=== PATIENT | female | born 1950 | race Caucasian/White ===

== ENCOUNTER 2018-09-24 14:12 | Outpatient (CLI) | payer MEDICARE, SELFPAY ==
--- NOTE | 2018-09-24 14:09 | DI.RAD_ITS ---
SYMPTOMS/DIAGNOSIS: LEFT SHOULDER PAIN; BILATERAL HIP PAIN LEFT SHOULDER: Mild to moderate degenerative changes involving the glenohumeral joint are demonstrated. There is also moderate DJD involving the AC joint. No soft tissue calcifications are evident. BILATERAL HIPS: Severe bilateral DJD is demonstrated with joint space narrowing, articular sclerosis, subchondral cyst formation and periarticular hypertrophic spurring. SUMMARY: Severe bilateral hip DJD is evident.
== END 2018-09-24 14:32 ==
PROVIDERS: PCP Family Medicine; Referring Provider Family Medicine; Visit Provider Student in an Organized Health Care Education/Training Program
DX: M25.512 Pain in left shoulder (principal); M25.551 Pain in right hip; M25.552 Pain in left hip; M16.0 Bilateral primary osteoarthritis of hip; I69.398 Other sequelae of cerebral infarction; R53.1 Weakness
CPT/HCPCS: 20610; 73521; 99202; 99204; 73030; J1040

== ENCOUNTER 2018-10-09 01:02 | Outpatient (CLI) | payer MEDICARE, SELFPAY ==
--- NOTE | 2018-10-09 07:14 | DI.RAD_ITS ---
SYMPTOMS/DIAGNOSIS: PRIMARY OSTEOARTHRITIS, RIGHT HIP, M16.11; PRIMARY OSTEOARTHRITIS, LEFT HIP, M16.12 BILATERAL HIP JOINT INJECTIONS: Fluoroscopy Time: 2 sec Fluoroscopy was utilized by Dr. Tello during left hip injection. Hard copy shows intraarticular injection of the hip. Fluoroscopy was utilized by Dr. Tello during right hip injection. Hard copy shows intraarticular injection of the hip.
[2018-10-09] MEDS: methylPREDNISolone ACETATE 80 MG/ML VIAL IM ×2 (13:45→13:49)
[2018-10-09] MEDS: Bupivacaine 0.5% Pres-Free 10 ML VIAL 5 ML IJ ×2 (13:47→13:50)
[2018-10-09] MEDS: Omnipaque 300 MG/ML 10 ML BTL IJ ×2 (13:48→13:50)
--- NOTE | 2018-10-09 15:38 | W.PROCNOTE ---
Date of service: 10/09/18 Time of Service: 12:38 Procedure Note Date of procedure: 10/09/18 Procedure: Bilateral hip Injection with Fluoroscopic Guidance Surgeon/Proceduralist/Physician: Avelino Tello Procedure Diagnosis: Bilateral hip Osteoarthritis Procedure Indications: Bonny has had persistent pain of the left and right hip and groin. Noninvasive measures have been tried. She has had previous intra-articular injections with good therapeutic benefit. An injection under fluoroscopy was recommended. I had discussed the risks of the procedure and the patient elected to proceed. Procedure Description: Bonny was greeted in the flouroscopy room. The correct side was identified and the consent was reviewed with the patient and signed. The patient was then placed in the supine position on the fluoroscopy table. The LEFT hip was then prepped with Chloraprep. The anterolateral injection starting point was identiifed by bony landmarks and fluoroscopy. The skin and soft tissue in the tract of the injection was anesthetized with 1% Lidocaine. A spinal needle was then inserted deep into the hip joint at the level of the lateral femoral neck under fluoroscopic guidance. A small amount of Omnipaque solution was injected to confirm intraarticular placement. Once confirmed, the hip was injected with 6cc of 0.5% Bupivicaine and 80mg of Depo-Medrol. A bandaid was placed on the injection site. The sterile table was moved away from the field and Bonny was repositioned for a right hip injection. The right hip was then prepped with Chloraprep. The anterolateral injection starting point was identiifed by bony landmarks and fluoroscopy. The skin and soft tissue in the tract of the injection was anesthetized with 1% Lidocaine. A spinal needle was then inserted deep into the hip joint at the level of the lateral femoral neck under fluoroscopic guidance. A small amount of Omnipaque solution was injected to confirm intraarticular placement. Once confirmed, the hip was injected with 6cc of 0.5% Bupivicaine and 80mg of Depo-Medrol. A bandaid was placed on the injection site. The patient tolerated the procedure well.
== END 2018-10-09 01:22 ==
PROVIDERS: PCP Family Medicine; Visit Provider Student in an Organized Health Care Education/Training Program
DX: M25.551 Pain in right hip (principal); M25.552 Pain in left hip; M16.0 Bilateral primary osteoarthritis of hip
CPT/HCPCS: 20610; 77002; J1040

== ENCOUNTER 2018-11-20 09:27 | Outpatient (REF) | payer MEDICARE, SELFPAY ==
[2018-11-20 21:35] LABS: ALT 32 U/L (12-78); AST 30 U/L (15-37); Albumin 3.7 g/dL (3.4-5.0); Alkaline Phosphatase 136 U/L (46-116); Anion Gap 12.2 mmol/L (3-11); BUN 12 mg/dL (7-18); Bilirubin, Total 0.5 mg/dL (0.2-1.0); CO2 25.8 mmol/L (21.0-32.0); CREATININE 0.82 mg/dL (0.55-1.02); Calcium 8.7 mg/dL (8.5-10.1); Calculated LDL 89; Chloride 107 mmol/L (98-107); Cholesterol 149 mg/dL (50-200); Glucose 94 mg/dL (70-100); HCT 45.4 % (36.0-46.0); HDL Cholesterol 45 mg/dL (40-60); HGB 14.8 g/dL (12.0-15.5); Mean Corp. HGB Concentration 32.6 g/dL (32.0-36.0); Mean Corpuscular Volume 98.1 fL (80-95); Mean Platelet Volume 12.4 fL (8.0-11.0); Platelet Count 205 x1000/uL (130-400); RBC 4.63 m/cumm (4.00-5.20); RBC Distribution Width 13.4 % (11.7-14.6); Sodium 145 mmol/L (136-145); TSH (W/Ref FT4) 3.07 uIU/mL (0.358-3.74); Total Protein 6.5 g/dL (6.4-8.2); Triglyceride 77 mg/dL (30-150); White Blood Cell Count 5.49 k/cumm (4.4-10.8)
== END 2018-11-20 09:47 ==
LOC: NCHCN 09:27
PROVIDERS: PCP Family Medicine; Visit Provider Family Medicine
DX: F32.9 Major depressive disorder, single episode, unspecified (principal); D68.9 Coagulation defect, unspecified; I63.9 Cerebral infarction, unspecified; R74.8 Abnormal levels of other serum enzymes
CPT/HCPCS: 80053; 80061; 83721; 85027; 84443

== ENCOUNTER 2019-02-12 00:59 | Outpatient (CLI) | payer MEDICARE, SELFPAY ==
--- NOTE | 2019-02-12 07:46 | DI.RAD_ITS ---
SYMPTOMS/DIAGNOSIS: PRIMARY OSTEOARTHRITIS OF RIGHT HIP, M16.11; PRIMARY OSTEOARTHRITIS OF LEFT HIP, M16.12 BILATERAL HIP INJECTIONS: Fluoroscopy Time: 13 seconds Fluoroscopy was utilized by Dr. Tello during left hip injection. Hard copy shows intraarticular left hip injection. Fluoroscopy was utilized by Dr. Tello during right hip injection. Hard copy shows intraarticular injection of the right hip.
[2019-02-12] MEDS: Omnipaque 300 MG/ML 10 ML BTL IJ ×2 (15:28→15:42)
[2019-02-12] MEDS: Bupivacaine 0.5% Pres-Free 10 ML VIAL 50 ML IJ ×2 (15:29→15:36)
[2019-02-12] MEDS: Lidocaine 1% Pres-Free 5 ML VIAL IJ ×2 (15:30→15:39)
[2019-02-12] MEDS: methylPREDNISolone ACETATE 80 MG/ML VIAL IM ×2 (15:31→15:45)
--- NOTE | 2019-02-12 16:05 | OPPNE_ITS ---
Date of service: 02/12/19 Time of Service: 14:42 Procedure Note Date of procedure: 02/12/19 Procedure: Bilateral Hip Injection Surgeon/Proceduralist/Physician: Avelino Tello Procedure Diagnosis: Bilateral Hip Arthritis Procedure Indications: Bonny has had persistent pain of the left and right hip and groin. Noninvasive measures have been tried. She has had previous intra-articular injections with good therapeutic benefit. An injection under fluoroscopy was recommended. I had discussed the risks of the procedure and the patient elected to proceed. Procedure Description: Bonny was greeted in the flouroscopy room. The correct side was identified and the consent was reviewed with the patient and signed. The patient was then placed in the supine position on the fluoroscopy table. The RIGH AND LEFT hip was then prepped with Chloraprep. The anterolateral injection starting point of the RIGHT was identiifed by bony landmarks and fluoroscopy. The skin and soft tissue in the tract of the injection was anesthetized with 1% Lidocaine. A spinal needle was then inserted deep into the hip joint at the level of the lat eral femoral neck under fluoroscopic guidance. A small amount of Omnipaque solution was injected to confirm intraarticular placement. Once confirmed, the hip was injected with 5cc of 0.5% Bupivicaine and 80mg of Depo-Medrol. A bandaid was placed on the injection site. While keeping the injectables sterile, the anterolateral injection starting point was identiifed by bony landmarks and fluoroscopy of the LEFT hip. The skin and soft tissue in the tract of the injection was anesthetized with 1% Lidocaine. A spinal needle was then inserted deep into the hip joint at the level of the lateral femoral neck under fluoroscopic guidance. A small amount of Omnipaque solution was injected to confirm intraarticular placement. Once confirmed, the hip was injected with 5cc of 0.5% Bupivicaine and 80mg of Depo- Medrol. A bandaid was placed on the injection site. The patient tolerated the procedure well.
== END 2019-02-12 01:19 ==
PROVIDERS: PCP Family Medicine; Visit Provider Student in an Organized Health Care Education/Training Program
DX: M16.12 Unilateral primary osteoarthritis, left hip (principal); M16.11 Unilateral primary osteoarthritis, right hip; M25.551 Pain in right hip; M25.552 Pain in left hip
CPT/HCPCS: 20610; 77002; J1040

== ENCOUNTER → 2019-06-26 09:51 | Outpatient (BNVA) | payer MEDICARE, SELFPAY | PROVIDERS: PCP Family Medicine; Referring Provider Family Medicine; Visit Provider Student in an Organized Health Care Education/Training Program | DX: M75.82 Other shoulder lesions, left shoulder (principal); M77.12 Lateral epicondylitis, left elbow; R20.2 Paresthesia of skin | CPT/HCPCS: 20610; 99213; J1040; L3908 ==

== ENCOUNTER 2019-07-02 01:30 | Outpatient (CLI) | payer MEDICARE, SELFPAY ==
--- NOTE | 2019-07-02 | DI.RAD_ITS ---
EXAM: RF JOINT INJECTION FLUORO GUID CLINICAL HISTORY: R HIP PAIN,m16.11, primary oa rt hip TECHNIQUE: COMPARISON: No exams were available for comparison FINDINGS: Fluoroscopy was utilized by Dr. Tello during left hip injection. Hard copy shows intra-articular left hip injection. IMPRESSION:
--- NOTE | 2019-07-02 | DI.RAD_ITS ---
EXAM: RF JOINT INJECTION FLUORO GUID CLINICAL HISTORY: R HIP PAIN,m16.11, primary oa rt hip TECHNIQUE: COMPARISON: No exams were available for comparison FINDINGS: Fluoroscopy was utilized by Dr. Tello during right hip injection. Hard copy shows intra-articular right hip injection. IMPRESSION:
[2019-07-02] MEDS: Bupivacaine 0.5% Pres-Free 10 ML VIAL IJ (14:27)
[2019-07-02] MEDS: methylPREDNISolone ACETATE 80 MG/ML VIAL 160 MG IM (14:27)
[2019-07-02] MEDS: Omnipaque 300 MG/ML 10 ML BTL IJ (14:28)
--- NOTE | 2019-07-02 14:33 | W.PROCNOTE ---
Date of service: 07/02/19 Time of Service: 14:34 Procedure Note Date of procedure: 07/02/19 Procedure: Bilateral hip Injection with Fluoroscopic Guidance Surgeon/Proceduralist/Physician: Avelino Tello Procedure Diagnosis: Bilateral hip Osteoarthritis Procedure Indications: Bonny has had persistent pain of the right and left hip and groin. Noninvasive measures have been tried. She has had previous injections with good results. Therefore, an injection under fluoroscopy was recommended. I had discussed the risks of the procedure and the patient elected to proceed. Procedure Description: Bonny was greeted in the flouroscopy room. The consent was reviewed with the patient and signed. The patient was then placed in the supine position on the fluoroscopy table. The RIGHT hip was then prepped with Chloraprep. The anterolateral injection starting point was identiifed by bony landmarks and fluoroscopy. The skin and soft tissue in the tract of the injection was anesthetized with 1% Lidocaine. A spinal needle was then inserted deep into the hip joint at the level of the lateral femoral neck under fluoroscopic guidance. A small amount of Omnipaque solution was injected to confirm intraarticular placement. Once confirmed, the hip was injected with 5cc of 0.5% Bupivicaine and 80mg of Depo-Medrol. A bandaid was placed on the injection site. The left side was then prepped with ChloraPrep. An anterior lateral injection starting point was identified the bony landmarks and fluoroscopy. The skin and soft tissues in the tract of the injection was then anesthetized with 1% lidocaine. She tolerated this well and a spinal needle was inserted deep into the hip joint at the level of the lateral femoral neck under fluoroscopic guidance. A small amount of Omnipaque solution was injected to confirm intra-articular placement. Once confirmed, the hip was then injected with 5 cc of 0.5% bupivacaine and 80 mg of Depo-Medrol. A Band-Aid was placed on the injection site. The patient tolerated the procedure well and noted improvement in pre-injection pain.
== END 2019-07-02 01:50 ==
PROVIDERS: PCP Family Medicine; Visit Provider Student in an Organized Health Care Education/Training Program
DX: M25.551 Pain in right hip (principal); M25.552 Pain in left hip; M16.0 Bilateral primary osteoarthritis of hip
CPT/HCPCS: 20610 ×2; 77002; J1040

== ENCOUNTER → 2019-07-14 13:48 | Outpatient (BNVA) | payer MEDICARE, SELFPAY | PROVIDERS: PCP Family Medicine; Referring Provider Student in an Organized Health Care Education/Training Program; Visit Provider Nurse Practitioner Adult Health | DX: G56.22 Lesion of ulnar nerve, left upper limb (principal) | CPT/HCPCS: 95908; 99203; 99214 ==

== ENCOUNTER → 2019-07-30 11:26 | Outpatient (BNVA) | payer MEDICARE, SELFPAY | PROVIDERS: PCP Family Medicine; Referring Provider Family Medicine; Visit Provider Student in an Organized Health Care Education/Training Program | DX: G56.22 Lesion of ulnar nerve, left upper limb (principal) | CPT/HCPCS: 99213 ==

== ENCOUNTER → 2019-10-12 15:14 | Outpatient (BNVA) | payer MEDICARE, SELFPAY | PROVIDERS: PCP Family Medicine; Referring Provider Family Medicine; Visit Provider Student in an Organized Health Care Education/Training Program | DX: M77.12 Lateral epicondylitis, left elbow (principal); G56.22 Lesion of ulnar nerve, left upper limb | CPT/HCPCS: 99212 ==

== ENCOUNTER 2019-10-15 12:29 | Outpatient (CLI) | payer MEDICARE, SELFPAY ==
--- NOTE | 2019-10-15 14:00 | DI.RAD_ITS ---
EXAM: RF JOINT INJECTION FLUORO GUID CLINICAL HISTORY: R HIP INJ UNDER FLUORO, PRIMARY OA RT HIP, M16.11 TECHNIQUE: COMPARISON: No exams were available for comparison FINDINGS: Fluoroscopy was utilized by Dr. Tello during right hip injection. Hard copy shows intra-articular injection. Fluoro time was 6 seconds. IMPRESSION:
--- NOTE | 2019-10-15 14:00 | DI.RAD_ITS ---
EXAM: RF JOINT INJECTION FLUORO GUID CLINICAL HISTORY: R HIP INJ UNDER FLUORO, PRIMARY OA RT HIP, M16.11 TECHNIQUE: COMPARISON: No exams were available for comparison FINDINGS: Fluoroscopy was utilized by Dr. Tello during left hip injection. Hard copy shows intra-articular injection. Fluoro time was 5 seconds. IMPRESSION:
[2019-10-15] MEDS: Omnipaque 300 MG/ML 10 ML BTL IJ (14:52)
[2019-10-15] MEDS: Bupivacaine 0.5% Pres-Free 10 ML VIAL 5 ML IJ (14:52)
[2019-10-15] MEDS: methylPREDNISolone ACETATE 80 MG/ML VIAL IM (14:53)
--- NOTE | 2019-10-15 20:59 | W.PROCNOTE ---
Date of service: 10/15/19 Time of Service: 14:20 Procedure Note Date of procedure: 10/15/19 Procedure: Bilateral Hip Injection with Fluoroscopic Guidance Surgeon/Proceduralist/Physician: Avelino Tello Procedure Diagnosis: Bilateral Hip Osteoarthritis Procedure Indications: Bonny has had persistent pain of the bilateral hip and groin. Noninvasive measures have been tried. She has had previous injections. Due to previous success with injections, repeat injection under fluoroscopy was recommended. I had discussed the risks of the procedure and the patient elected to proceed. Procedure Description: Bonny was greeted in the flouroscopy room. The correct side was identified and the consent was reviewed with the patient and signed. The patient was then placed in the supine position on the fluoroscopy table. The LEFT hip was then prepped with Chloraprep. The anterolateral injection starting point was identiifed by bony landmarks and fluoroscopy. The skin and soft tissue in the tract of the injection was anesthetized with 1% Lidocaine. A spinal needle was then inserted deep into the hip joint at the level of the lateral femoral neck under fluoroscopic guidance. A small amount of Omnipaque solution was injected to confirm intraarticular placement. Once confirmed, the hip was injected with 5cc of 0.5% Bupivicaine and 80mg of Depo-Medrol. A bandaid was placed on the injection site. The RIGHT hip was then prepped with Chloraprep. The anterolateral injection starting point was identiifed by bony landmarks and fluoroscopy. The skin and soft tissue in the tract of the injection was anesthetized with 1% Lidocaine. A spinal needle was then inserted deep into the hip joint at the level of the lateral femoral neck under fluoroscopic guidance. A small amount of Omnipaque solution was injected to confirm intraarticular placement. Once confirmed, the hip was injected with 5cc of 0.5% Bupivicaine and 80mg of Depo-Medrol. A bandaid was placed on the injection site. The patient tolerated the procedure well and noted improvement in pre-injection pain.
== END 2019-10-15 12:49 ==
PROVIDERS: PCP Family Medicine; Visit Provider Student in an Organized Health Care Education/Training Program
DX: M25.551 Pain in right hip (principal); M25.552 Pain in left hip; M16.0 Bilateral primary osteoarthritis of hip
CPT/HCPCS: 20610 ×2; 77002; J1040

== ENCOUNTER 2019-11-23 10:34 | Outpatient (REF) | payer MEDICARE, SELFPAY ==
[2019-11-23 21:26] LABS: ALT 30 U/L (14-59); AST 21 U/L (15-37); Albumin 3.7 g/dL (3.4-5.0); Alkaline Phosphatase 141 U/L (46-116); Anion Gap 9.5 mmol/L (3-11); BUN 14 mg/dL (7-18); Bilirubin, Total 0.7 mg/dL (0.2-1.0); CO2 28.5 mmol/L (21.0-32.0); CREATININE 0.73 mg/dL (0.55-1.02); Calcium 8.9 mg/dL (8.5-10.1); Calculated LDL 85 mg/dL (<100); Chloride 104 mmol/L (98-107); Cholesterol 158 mg/dL (<200); Glucose 94 mg/dL (74-106); HDL Cholesterol 50 mg/dL (40-60); Sodium 142 mmol/L (136-145); Total Protein 6.4 g/dL (6.4-8.2); Triglyceride 116 mg/dL (<150)
[2019-11-23 21:33] LABS: HCT 44.5 % (36.0-46.0); HGB 14.3 g/dL (12.0-15.5); Mean Corp. HGB Concentration 32.1 g/dL (32.0-36.0); Mean Corpuscular Hemoglobin 31.1 pg (27.0-33.0); Mean Corpuscular Volume 96.7 fL (80-95); Mean Platelet Volume 12.3 fL (8.0-11.0); Platelet Count 193 x1000/uL (130-400); RBC Distribution Width 13.4 % (11.7-14.6); White Blood Cell Count 5.34 k/cumm (4.4-10.8)
== END 2019-11-23 10:54 ==
LOC: NCHCN 10:34
PROVIDERS: PCP Family Medicine; Visit Provider Family Medicine
DX: E78.5 Hyperlipidemia, unspecified (principal); D68.9 Coagulation defect, unspecified; I63.9 Cerebral infarction, unspecified
CPT/HCPCS: 80053; 80061; 85027

== ENCOUNTER 2020-01-28 02:24 | Outpatient (CLI) | payer MEDICARE, SELFPAY ==
--- NOTE | 2020-01-28 | DI.DEXA_ITS ---
EXAM: XR DEXA BONE DENSITY W/WO SARI CLINICAL HISTORY: SCREENING FOR OSTEOPOROSIS IN POSTMENOPAUSAL WOMAN,Z78.0 TECHNIQUE: COMPARISON: CR XR hip pelvis adult Bl from 09/24/2018 FINDINGS: DEXA scan was performed according to the usual protocol. Findings for left hip scanning are T-score -1.8 with left femoral neck T-score -0.7. Lumbar spine scanning shows T-score 0.1. Left forearm scanning shows T-score -1.3. Lateral vertebral scanogram is of poor technical quality regarding the thoracic spine, thoracic verte bral bodies cannot be adequately assessed. No lumbar spine compression fracture. IMPRESSION: Findings consistent with osteopenia according to the WHO criteria. Thoracic kyphosis noted, thoracic vertebral bodies not well visualized. Thoracic spine radiographs may be obtained if clinically addi cated. RADIATION DOSE DELIVERED: Total DLP
--- NOTE | 2020-01-28 14:11 | DI.MAMMO_ITS ---
EXAM: MG MAMMO SCREENING CLINICAL HISTORY: SCREENING, Z12.31 TECHNIQUE: Bilateral full field digital CC and MLO mammographic images were obtained with 3D tomosyn thesis and utilizing computer aided detection (CAD). COMPARISON: Priors unavailable at this time for comparison. FINDINGS: Masses/Architectural Distortion: None seen. Microcalcifications: No suspicious pleomorphic-type are seen. Skin Thickening/Nipple Retraction: None. IMPRESSION: 1. No significant interval change with no specific features of malignancy noted. 2. Unless there is more urgent need, screening mammography is recommended, as per [employer] guidelines. BI-RADS Category 1 - Negative Breast Density - Category A - Almost entirely fatty A negative radiographic report should not delay biopsy if a dominant or clinically suspicious mass is present. Up to ten percent of cancers are not identified on mammography. A negative report may reinforce clinical impression. Adenosis and dense breasts may obscure an underlying neoplasm. False positive reports average 6 to 10%. Patient will receive a letter notifying them of these results.
== END 2020-01-28 02:44 ==
PROVIDERS: PCP Family Medicine; Visit Provider Family Medicine
DX: Z12.31 Encounter for screening mammogram for malignant neoplasm of breast (principal); Z78.0 Asymptomatic menopausal state; M85.89 Other specified disorders of bone density and structure, multiple sites
CPT/HCPCS: 77063; 77067; 77080

== ENCOUNTER 2020-05-05 01:12 | Outpatient (CLI) | payer MEDICARE, SELFPAY ==
--- NOTE | 2020-05-05 13:40 | DI.RAD_ITS ---
EXAM: RF JOINT INJECTION FLUORO GUID CLINICAL HISTORY: R HIP INJ UNDER FLUORO,PRIMARY OA RT HIP,M16.11. TECHNIQUE: 2D and realtime digital imaging was performed. COMPARISON: No exams were available for comparison FINDINGS: Fluoroscopy was provided for Dr. Tello for guidance with performing a left hip injection. Please see procedure note for details. Fluoro time: 6 seconds RADIATION DOSE DELIVERED:
--- NOTE | 2020-05-05 13:50 | DI.RAD_ITS ---
EXAM: RF JOINT INJECTION FLUORO GUID CLINICAL HISTORY: LT HIP INJ UNDER FLUORO,PRIMARY OA RT HIP,M16.11. TECHNIQUE: 2D and realtime digital imaging was performed. COMPARISON: No exams were available for comparison FINDINGS: Fluoroscopy was provided for Dr. Tello for guidance with performing a left hip injection. Please see procedure note for details. Fluoro time: 10 seconds RADIATION DOSE DELIVERED:
[2020-05-05] MEDS: Bupivacaine 0.5% Pres-Free 10 ML VIAL 6 ML IV (14:07)
[2020-05-05] MEDS: methylPREDNISolone ACETATE 80 MG/ML VIAL IM (14:08)
[2020-05-05] MEDS: Omnipaque 300 MG/ML 10 ML BTL IJ (14:09)
--- NOTE | 2020-05-06 13:02 | W.PROCNOTE ---
Date of service: 05/05/20 Time of Service: 13:31 Procedure Note Date of procedure: 05/06/20 Procedure: Bilateral Hip Injection with Fluoroscopic Guidance Surgeon/Proceduralist/Physician: Avelino Tello Procedure Diagnosis: Bilateral Hip Osteoarthritis Procedure Indications: Bonny has had persistent pain of the bilateral hip and groin. Noninvasive measures have been tried. She has had previous injections. Due to previous success with injections, repeat injection under fluoroscopy was recommended. I had discussed the risks of the procedure and the patient elected to proceed. Procedure Description: Bonny was greeted in the flouroscopy room. The correct side was identified and the consent was reviewed with the patient and signed. The patient was then placed in the supine position on the fluoroscopy table. The LEFT hip was then prepped with Chloraprep. The anterolateral injection starting point was identiifed by bony landmarks and fluoroscopy. The skin and soft tissue in the tract of the injection was anesthetized with 1% Lidocaine. A spinal needle was then inserted deep into the hip joint at the level of the lateral femoral neck under fluoroscopic guidance. A small amount of Omnipaque solution was injected to confirm intraarticular placement. Once confirmed, the hip was injected with 5cc of 0.5% Bupivicaine and 80mg of Depo-Medrol. A bandaid was placed on the injection site. The RIGHT hip was then prepped with Chloraprep. The anterolateral injection starting point was identiifed by bony landmarks and fluoroscopy. The skin and soft tissue in the tract of the injection was anesthetized with 1% Lidocaine. A spinal needle was then inserted deep into the hip joint at the level of the lateral femoral neck under fluoroscopic guidance. A small amount of Omnipaque solution was injected to confirm intraarticular placement. Once confirmed, the hip was injected with 5cc of 0.5% Bupivicaine and 80mg of Depo-Medrol. A bandaid was placed on the injection site. The patient tolerated the procedure well and noted improvement in pre-injection pain.
== END 2020-05-05 01:32 ==
PROVIDERS: PCP Family Medicine; Visit Provider Student in an Organized Health Care Education/Training Program
DX: M16.12 Unilateral primary osteoarthritis, left hip (principal); M16.11 Unilateral primary osteoarthritis, right hip; M25.551 Pain in right hip; M25.552 Pain in left hip
CPT/HCPCS: 20610; 77002; J1040

== ENCOUNTER → 2020-05-16 09:04 | Outpatient (BNVA) | payer MEDICARE, SELFPAY | PROVIDERS: PCP Family Medicine; Referring Provider Family Medicine; Visit Provider Student in an Organized Health Care Education/Training Program | DX: M75.82 Other shoulder lesions, left shoulder (principal) | CPT/HCPCS: 20610; 99213; J1040 ==

== ENCOUNTER 2020-08-18 01:46 | Outpatient (CLI) | payer MEDICARE, SELFPAY ==
--- NOTE | 2020-08-18 08:15 | DI.RAD_ITS ---
EXAM: RF JOINT INJECTION FLUORO GUID CLINICAL HISTORY: RIGHT HIP PAIN,PRIMARY OA, M16.11 TECHNIQUE: 2D and realtime digital imaging was performed. Fluoroscopy was provided in the OR. COMPARISON: No exams were available for comparison FINDINGS: Fluoroscopy was provided for Dr. Tello for guidance with performing the right hip injection. Carie brambila see procedure note for details. Fluoro time: 2 seconds RADIATION DOSE DELIVERED:
--- NOTE | 2020-08-18 08:15 | DI.RAD_ITS ---
EXAM: RF JOINT INJECTION FLUORO GUID CLINICAL HISTORY: RIGHT HIP PAIN,PRIMARY OA, M16.11 TECHNIQUE: 2D and realtime digital imaging was performed. Fluoroscopy was provided in the OR. COMPARISON: No exams were available for comparison FINDINGS: Fluoroscopy was provided for Dr. Tello for guidance with performing a hip injection. Please see procedure note for details. Fluoro time: 2 seconds RADIATION DOSE DELIVERED:
--- NOTE | 2020-08-18 14:26 | W.PROCNOTE ---
Date of service: 08/18/20 Time of Service: 14:27 Procedure Note Date of procedure: 08/18/20 Procedure: Bilateral Hip Injection with Fluoroscopic Guidance Surgeon/Proceduralist/Physician: Avelino Tello Procedure Diagnosis: Bilateral Hip Osteoarthritis Procedure Indications: Bonny has had persistent pain of bilateral hips. Noninvasive measures have been tried. She has had multiple previous injections of her hips with good success and desired to repeat these. I had discussed the risks of the procedure and the patient elected to proceed. Procedure Description: Bonny was greeted in the flouroscopy room. The consent was reviewed with the patient and signed. The patient was then placed in the supine position on the fluoroscopy table. The RIGHT hip was then prepped with Chloraprep. The anterolateral injection starting point was identiifed by bony landmarks and fluoroscopy. The skin and soft tissue in the tract of the injection was anesthetized with 1% Lidocaine. A spinal needle was then inserted deep into the hip joint at the level of the lateral femoral neck under fluoroscopic guidance. A small amount of Omnipaque solution was injected to confirm intraarticular placement. Once confirmed, the hip was injected with 5cc of 0.5% Bupivicaine and 80mg of Depo-Medrol. A bandaid was placed on the injection site. The LEFT hip was then prepped with Chloraprep. The anterolateral injection starting point was identiifed by bony landmarks and fluoroscopy. The skin and soft tissue in the tract of the injection was anesthetized with 1% Lidocaine. A spinal needle was then inserted deep into the hip joint at the level of the lateral femoral neck under fluoroscopic guidance. A small amount of Omnipaque solution was injected to confirm intraarticular placement. Once confirmed, the hip was injected with 5cc of 0.5% Bupivicaine and 80mg of Depo-Medrol. A bandaid was placed on the injection site. The patient tolerated the procedure well and was transferred back to her wheelchair without difficulty.
[2020-08-18] MEDS: Omnipaque 300 MG/ML 10 ML BTL IJ (14:46)
[2020-08-18] MEDS: methylPREDNISolone ACETATE 80 MG/ML VIAL IM (14:47)
[2020-08-18] MEDS: Bupivacaine 0.5% Pres-Free 10 ML VIAL IJ (14:50)
== END 2020-08-18 02:06 ==
PROVIDERS: PCP Family Medicine; Visit Provider Student in an Organized Health Care Education/Training Program
DX: M16.0 Bilateral primary osteoarthritis of hip (principal); M25.551 Pain in right hip; M25.552 Pain in left hip
CPT/HCPCS: 20610 ×2; 77002; J1040

== ENCOUNTER → 2020-08-29 08:29 | Outpatient (BNVA) | payer MEDICARE, SELFPAY | PROVIDERS: PCP Family Medicine; Referring Provider Family Medicine; Visit Provider Physician Assistant | DX: M75.82 Other shoulder lesions, left shoulder (principal) | CPT/HCPCS: 20610; J1040 ==

== ENCOUNTER 2020-12-01 08:37 | Outpatient (REF) | payer MEDICARE, SELFPAY ==
[2020-12-01 13:32] LABS: HCT 44.1 % (36.0-46.0); MCH 30.5 pg (27.0-33.0); MCHC 31.7 % (32.0-36.0); MCV 96.1 fL (80-95); MPV 12.7 fL (8.0-11.0); Platelet Count 176 10^3/uL (130-400); RBC 4.59 10^6/uL (3.93-5.22); RDW 12.9 % (11.7-14.6); WBC 5.82 10^3/uL (4.4-10.8)
[2020-12-01 13:41] LABS: ALT 23 U/L (14-59); AST 15 U/L (15-37); Albumin 3.5 g/dL (3.4-5.0); Alkaline Phosphatase 142 U/L (46-116); Anion Gap 9.3 mmol/L (3-11); BUN 21 mg/dL (7-18); Bilirubin, Total 0.5 mg/dL (0.2-1.0); CO2 28.7 mmol/L (21.0-32.0); CREATININE 0.7 mg/dL (0.55-1.02); Calcium 8.7 mg/dL (8.5-10.1); Calculated LDL 70 mg/dL (<100); Chloride 107 mmol/L (98-107); Cholesterol 140 mg/dL (<200); Glucose 93 mg/dL (74-106); HDL Cholesterol 46 mg/dL (40-60); Potassium 4.6 mmol/L (3.5-5.1); Sodium 145 mmol/L (136-145); Total Protein 6.2 g/dL (6.4-8.2); Triglyceride 124 mg/dL (<150)
== END 2020-12-01 08:38 | disposition home or self-care (01) ==
LOC: NCHCN 08:37
PROVIDERS: PCP Family Medicine; Visit Provider Family Medicine
DX: Z00.00 Encounter for general adult medical examination without abnormal findings (principal); E78.5 Hyperlipidemia, unspecified; I82.409 Acute embolism and thrombosis of unspecified deep veins of unspecified lower extremity; I63.9 Cerebral infarction, unspecified; D68.9 Coagulation defect, unspecified
CPT/HCPCS: 80053; 80061; 85027

== ENCOUNTER 2020-12-15 02:17 | Outpatient (CLI) | payer MEDICARE, SELFPAY ==
--- NOTE | 2020-12-15 09:15 | DI.RAD_ITS ---
Exam(s) RF JOINT INJECTION FLUORO GUID EXAM: RF JOINT INJECTION FLUORO GUID CLINICAL HISTORY: L HIP INJ UNDER FLUORO, PRIMARY OA LT HIP, M16.12 TECHNIQUE: Fluoroscopy provided. Radiologist not present. CONTRAST MATERIAL: None COMPARISON: No exams were available for comparison FINDINGS: Fluoroscopy was provided for therapeutic left hip injection Submitted image(s) reveal needle placement at the lateral aspect of the femoral head. Small amount o f intra-articular contrast is noted. Please refer to the procedure report for complete details. Cumulative Dose: Ka,r=0.419 mGy IMPRESSION: RADIATION DOSE DELIVERED:
--- NOTE | 2020-12-15 09:30 | DI.RAD_ITS ---
Exam(s) RF JOINT INJECTION FLUORO GUID EXAM: RF JOINT INJECTION FLUORO GUID CLINICAL HISTORY: R HIP INJ UNDER FLUORO, PRIMARY OA RT HIP,M16.11 TECHNIQUE: Fluoroscopy provided. Radiologist not present. CONTRAST MATERIAL: None COMPARISON: No exams were available for comparison FINDINGS: Fluoroscopy was provided for therapeutic right hip injection Submitted image(s) reveal distal tip of the needle at the junction of the upper femoral head and neck . Small amount of intra-articular contrast is noted. Please refer to the procedure report for complete details. Cumulative Dose: luisa Landers=0.331 mGy IMPRESSION: RADIATION DOSE DELIVERED:
[2020-12-15] MEDS: Bupivacaine 0.5% Pres-Free 10 ML VIAL 5 ML IJ (14:30)
[2020-12-15] MEDS: Omnipaque 300 MG/ML 10 ML BTL IJ (14:31)
--- NOTE | 2020-12-15 14:32 | W.PROCNOTE ---
Date of service: 12/15/20 Time of Service: 14:22 Procedure Note Date of procedure: 12/15/20 Procedure: Bilateral Hip Injection with Fluoroscopic Guidance Surgeon/Proceduralist/Physician: Avelino Tello Procedure Diagnosis: Bilateral Hip Osteoarthritis Procedure Indications: Bonny has had persistent pain of the LEFT AND RIGHT hip. Noninvasive measures have been tried and she has responded well to previous bilateral hip injections. She requests repeat injections. I had discussed the risks of the procedure and the patient elected to proceed. Procedure Description: Bonny was greeted in the flouroscopy room. The correct side was identified and the consent was reviewed with the patient and signed. The patient was then placed in the supine position on the fluoroscopy table. The RIGHT hip was then prepped with Chloraprep. The anterolateral injection starting point was identiifed by bony landmarks and fluoroscopy. The skin and soft tissue in the tract of the injection was anesthetized with 1% Lidocaine. A spinal needle was then inserted deep into the hip joint at the level of the lateral femoral neck under fluoroscopic guidance. A small amount of Omnipaque solution was injected to confirm intraarticular placement. Once confirmed, the hip was injected with 5cc of 0.5% Bupivicaine and 80mg of Depo-Medrol. A bandaid was placed on the injection site. Attention was then turned to the left hip. The LEFT hip was then prepped with Chloraprep. The anterolateral injection starting point was identiifed by bony landmarks and fluoroscopy. The skin and soft tissue in the tract of the injection was anesthetized with 1% Lidocaine. A spinal needle was then inserted deep into the hip joint at the level of the lateral femoral neck under fluoroscopic guidance. Once confirmed, the hip was injected with 5cc of 0.5% Bupivicaine and 80mg of Depo-Medrol. A bandaid was placed on the injection site. The patient tolerated the procedure well.
[2020-12-15] MEDS: methylPREDNISolone ACETATE 80 MG/ML VIAL IM ×2 (14:33→14:34)
== END 2020-12-15 02:37 ==
PROVIDERS: PCP Family Medicine; Visit Provider Student in an Organized Health Care Education/Training Program
DX: M16.0 Bilateral primary osteoarthritis of hip (principal)
CPT/HCPCS: 20610; 77002; J1040

== ENCOUNTER 2021-03-23 01:55 | Outpatient (CLI) | payer MEDICARE, SELFPAY ==
--- NOTE | 2021-03-23 08:15 | DI.RAD_ITS ---
Exam(s) RF JOINT INJECTION FLUORO GUID EXAM: RF JOINT INJECTION FLUORO GUID CLINICAL HISTORY: degenerative joint disease of left hip,M16.0, LT HIP INJECTION TECHNIQUE: Fluoroscopy provided. Radiologist not present. CONTRAST MATERIAL: None COMPARISON: No exams were available for comparison FINDINGS: Fluoroscopy was provided for Dr. Tello during left hip joint injection. Submitted image(s) reveal needle placement lateral aspect femoral head. Contrast injected at this le roberto Please refer to the procedure report for complete details. Cumulative Dose: Ka,r=0.77 mGy IMPRESSION: RADIATION DOSE DELIVERED:
--- NOTE | 2021-03-23 08:15 | DI.RAD_ITS ---
Exam(s) RF JOINT INJECTION FLUORO GUID EXAM: RF JOINT INJECTION FLUORO GUID CLINICAL HISTORY: degenerative joint disease of right hip,RT HIP INJECTION,M16.0 TECHNIQUE: Fluoroscopy provided. Radiologist not present. CONTRAST MATERIAL: None COMPARISON: No exams were available for comparison FINDINGS: Fluoroscopy was provided for Dr. Tello during therapeutic right hip injection. Submitted image(s) reveal needle placement bilateral approach with needle tip at the lateral femoral head-neck junction. Contrast injected Please refer to the procedure report for complete details. Cumulative Dose: Ka,r=0.703 mGy IMPRESSION: RADIATION DOSE DELIVERED:
[2021-03-23] MEDS: methylPREDNISolone ACETATE 80 MG/ML VIAL IM ×2 (15:27→15:29)
[2021-03-23] MEDS: Bupivacaine 0.5% Pres-Free 10 ML VIAL 5 ML IJ ×2 (15:31→15:33)
[2021-03-23] MEDS: Omnipaque 300 MG/ML 10 ML BTL IJ ×2 (15:32→15:33)
--- NOTE | 2021-03-23 21:55 | OPPNE_ITS ---
Date of service: 03/23/21 Time of Service: 15:20 Procedure Note Date of procedure: 03/23/21 Procedure: Bilaterl Hip Injection Surgeon/Proceduralist/Physician: Avelino Tello Procedure Diagnosis: Bilateral Hip Arthritis Procedure Indications: Bonny has had persistent pain of the LEFT AND RIGHT hip. Noninvasive measures have been tried and she has responded well to previous bilateral hip injections. She requests repeat injections. I had discussed the risks of the procedure and the patient elected to proceed. Procedure Description: Bonny was greeted in the flouroscopy room. The correct side was identified and the consent was reviewed with the patient and signed. The patient was then placed in the supine position on the fluoroscopy table. The RIGHT hip was then prepped with Chloraprep. The anterolateral injection starting point was identiifed by bony landmarks and fluoroscopy. The skin and soft tissue in the tract of the injection was anesthetized with 1% Lidocaine. A spinal needle was then inserted deep into the hip joint at the level of the lateral femoral neck under fluoroscopic guidance. A small amount of Omnipaque solution was injected to confirm intraarticular placement. Once confirmed, the hip was injected with 5cc of 0.5% Bupivicaine and 80mg of Depo-Medrol. A bandaid was placed on the injection site. Attention was then turned to the left hip. The LEFT hip was then prepped with Chloraprep. The anterolateral injection starting point was identiifed by bony landmarks and fluoroscopy. The skin and soft tissue in the tract of the injection was anesthetized with 1% Lidocaine. A spinal needle was then inserted deep into the hip joint at the level of the lateral femoral neck under fluoros copic guidance. Once confirmed, the hip was injected with 5cc of 0.5% Bupivicaine and 80mg of Depo-Medrol. A bandaid was placed on the injection site. The patient tolerated the procedure well.
== END 2021-03-23 02:15 ==
PROVIDERS: PCP Family Medicine; Visit Provider Student in an Organized Health Care Education/Training Program
DX: M16.0 Bilateral primary osteoarthritis of hip (principal); M25.551 Pain in right hip; M25.552 Pain in left hip
CPT/HCPCS: 20610; 77002; J1040

== ENCOUNTER → 2021-04-04 07:52 | Outpatient (BNVA) | payer MEDICARE, SELFPAY | PROVIDERS: PCP Family Medicine; Referring Provider Family Medicine | DX: M75.112 Incomplete rotator cuff tear or rupture of left shoulder, not specified as traumatic (principal); M75.82 Other shoulder lesions, left shoulder | CPT/HCPCS: 20610; J1040 ==

== ENCOUNTER 2021-07-06 01:43 | Outpatient (CLI) | payer MEDICARE, SELFPAY ==
--- NOTE | 2021-07-06 13:15 | DI.RAD_ITS ---
Exam(s) RF JOINT INJECTION FLUORO GUID EXAM: RF JOINT INJECTION FLUORO GUID CLINICAL HISTORY: osteoarthritis of left hip.,M16.12, FLUORO GUIDED INJECTION TECHNIQUE: 2D and realtime digital imaging was performed. COMPARISON: No exams were available for comparison FINDINGS: Fluoroscopy was utilized by Dr. Tello during left hip injection. Hard copy shows intra-articular injection of the hip. IMPRESSION: RADIATION DOSE DELIVERED: Leesar= 1.66 mGy Total DLP
--- NOTE | 2021-07-06 13:21 | DI.RAD_ITS ---
Exam(s) RF JOINT INJECTION FLUORO GUID EXAM: RF JOINT INJECTION FLUORO GUID CLINICAL HISTORY: osteoarthritis of right hip,M16.11, FLUORO GUIDED INJECTION TECHNIQUE: 2D and realtime digital imaging was performed. COMPARISON: No exams were available for comparison FINDINGS: C-arm fluoroscopy was utilized by Dr. Tello during right hip injection. Hard copy shows intra-art icular injection. IMPRESSION: RADIATION DOSE DELIVERED: Leesar=1.27 mGy Total DLP
--- NOTE | 2021-07-06 13:27 | OPPNE_ITS ---
Date of service: 07/06/21 Time of Service: 13:27 Procedure Note Date of procedure: 07/06/21 Procedure: Bilateral Hip Injection with Fluoroscopic Guidance Surgeon/Proceduralist/Physician: Avelino Tello Procedure Diagnosis: Bilateral Hip Osteoarthritis Procedure Indications: Bonny has had persistent pain of the BILATERAL hip and groin. Noninvasive measures have been tried. She has had previous injections with great relief so an injection under fluoroscopy was recommended. I had discussed the risks of the procedure and the patient elected to proceed. Procedure Description: Bonny was greeted in the flouroscopy room. The consent was reviewed with the patient and signed. The patient was then placed in the supine position on the fluoroscopy table. The RIGHT hip was then prepped with Chloraprep. The anterolateral injection starting point was identiifed by bony landmarks and fluoroscopy. The skin and soft tissue in the tract of the injection was anesthetized with 1% Lidocaine. A spinal needle was then inserted deep into the hip joint at the level of the lateral femoral neck under fluoroscopic guidance. A small amount of Omnipaque solution was injected to confirm intraarticular placement. Once confirmed, the hip was injected with 5cc of 0.5% Bupivicaine and 80mg of Depo- Medrol. A bandaid was placed on the injection site. The LEFT hip was then prepped with Chloraprep. The anterolateral injection starting point was identiifed by bony landmarks and fluoroscopy. The skin and soft tissue in the tract of the injection was anesthetized with 1% Lidocaine. A spinal needle was then inserted deep into the hip joint at the level of the lateral femoral neck under fluoroscopic guidance. A small amount of Omnipaque solution was injected to confirm intraarticular placement. Once confirmed, the hip was injected with 5cc of 0.5% Bupivicaine and 80mg of Depo-Medrol. A bandaid was placed on the injection site. The patient tolerated the procedure well.
[2021-07-06] MEDS: methylPREDNISolone ACETATE 80 MG/ML VIAL IM (13:45)
== END 2021-07-06 02:03 ==
PROVIDERS: PCP Family Medicine; Visit Provider Student in an Organized Health Care Education/Training Program
DX: M16.11 Unilateral primary osteoarthritis, right hip (principal); M16.12 Unilateral primary osteoarthritis, left hip; M25.551 Pain in right hip; M25.552 Pain in left hip; R10.31 Right lower quadrant pain; R10.32 Left lower quadrant pain
CPT/HCPCS: 20610; 77002; J1040

== ENCOUNTER → 2021-07-13 10:23 | Outpatient (BNVA) | payer MEDICARE, SELFPAY | PROVIDERS: PCP Family Medicine; Referring Provider Family Medicine; Visit Provider Physician Assistant | DX: M75.82 Other shoulder lesions, left shoulder (principal); M75.112 Incomplete rotator cuff tear or rupture of left shoulder, not specified as traumatic | CPT/HCPCS: 20610; J1040 ==

== ENCOUNTER → 2021-11-14 10:54 | Outpatient (BNVA) | payer MEDICARE, SELFPAY | PROVIDERS: PCP Family Medicine; Referring Provider Family Medicine; Visit Provider Physician Assistant Surgical | DX: M75.112 Incomplete rotator cuff tear or rupture of left shoulder, not specified as traumatic (principal); M75.82 Other shoulder lesions, left shoulder | CPT/HCPCS: 20610; J1040 ==

== ENCOUNTER → 2021-11-16 02:40 | Outpatient (CLI) | payer MEDICARE, SELFPAY ==
--- NOTE | 2021-11-16 13:57 | DI.RAD_ITS ---
Exam(s) RF JOINT INJECTION FLUORO GUID EXAM: RF JOINT INJECTION FLUORO GUID CLINICAL HISTORY: djd of rt hip-pain,oa rt hip, m16.11,fluoro guided injection TECHNIQUE: Fluoroscopy provided. Radiologist not present. CONTRAST MATERIAL: None COMPARISON: No exams were available for comparison FINDINGS: Fluoroscopy was provided for therapeutic right hip injection. Submitted image(s) reveal needle tip placement at junction of the lateral aspect of the femoral head and neck. Intra-articular contrast injected for position verification Please refer to the procedure report for complete details. Cumulative Dose: Ka,r=0.865 mGy IMPRESSION: RADIATION DOSE DELIVERED:
--- NOTE | 2021-11-16 14:20 | DI.RAD_ITS ---
Exam(s) RF JOINT INJECTION FLUORO GUID EXAM: RF JOINT INJECTION FLUORO GUID CLINICAL HISTORY: djd left hip-pain,m16.12, oa lt hip, fluoro guided injection TECHNIQUE: Fluoroscopy provided. Radiologist not present. CONTRAST MATERIAL: None COMPARISON: No exams were available for comparison FINDINGS: Fluoroscopy was provided for therapeutic left hip injection. Submitted image(s) reveal needle placement intra-articular left hip with intra-articular contrast inj ection for position verification Please refer to the procedure report for complete details. Cumulative Dose: Ka,r=0.865 mGy IMPRESSION: RADIATION DOSE DELIVERED:
--- NOTE | 2021-11-16 14:23 | W.PROCNOTE ---
Date of service: 11/16/21 Time of Service: 14:05 Procedure Note Date of procedure: 11/16/21 Procedure: Bilateral Hip Injection with Fluoroscopic Guidance Surgeon/Proceduralist/Physician: Avelino Tello Procedure Diagnosis: Bilateral Hip Osteoarthritis Procedure Indications: Bonny has had persistent pain of the BILATERAL hip and groin. Noninvasive measures have been tried. She has had success with previous injections. She desired repeat injections. I had discussed the risks of the procedure and the patient elected to proceed. Procedure Description: Bonny was greeted in the flouroscopy room. The consent was reviewed with the patient and signed. The patient was then placed in the supine position on the fluoroscopy table. The RIGHT hip was then prepped with Chloraprep. The anterolateral injection starting point was identiifed by bony landmarks and fluoroscopy. The skin and soft tissue in the tract of the injection was anesthetized with 1% Lidocaine. A spinal needle was then inserted deep into the hip joint at the level of the lateral femoral neck under fluoroscopic guidance. A small amount of Omnipaque solution was injected to confirm intraarticular placement. Once confirmed, the hip was injected with 5cc of 0.5% Bupivicaine and 80mg of Depo-Medrol. A bandaid was placed on the injection site. The LEFT hip was then prepped with Chloraprep. The anterolateral injection starting point was identiifed by bony landmarks and fluoroscopy. The skin and soft tissue in the tract of the injection was anesthetized with 1% Lidocaine. A spinal needle was then inserted deep into the hip joint at the level of the lateral femoral neck under fluoroscopic guidance. A small amount of Omnipaque solution was injected to confirm intraarticular placement. Once confirmed, the hip was injected with 5cc of 0.5% Bupivicaine and 80mg of Depo-Medrol. A bandaid was placed on the injection site. The patient tolerated the procedure well.
[2021-11-16] MEDS: Bupivacaine 0.5% Pres-Free 10 ML VIAL 5 ML IJ (14:40)
[2021-11-16] MEDS: methylPREDNISolone ACETATE 80 MG/ML VIAL IM (14:41)
== END ==
PROVIDERS: PCP Family Medicine; Visit Provider Student in an Organized Health Care Education/Training Program
DX: M16.11 Unilateral primary osteoarthritis, right hip (principal); M16.12 Unilateral primary osteoarthritis, left hip
CPT/HCPCS: 20610; 77002; J1040

== ENCOUNTER 2021-12-25 15:04 | Outpatient (REF) | payer MEDICARE, SELFPAY | END 2021-12-25 15:05 | disposition home or self-care (01) | LOC: NCHCN 15:04 | PROVIDERS: PCP Family Medicine; Visit Provider Family Medicine | DX: N39.0 Urinary tract infection, site not specified (principal) | CPT/HCPCS: 87077; 87086; 87186 ==

== ENCOUNTER 2022-02-02 08:52 | Outpatient (CLI) | payer MEDICARE, SELFPAY ==
--- NOTE | 2022-02-02 08:30 | DI.RAD_ITS ---
Exam(s) XR HIP LT COMPLETE AP PELVIS EXAM: XR HIP LT COMPLETE AP PELVIS CLINICAL HISTORY: preop TECHNIQUE: COMPARISON: CR XR DEXA BONE DENSITY W/WO SARI from 01/28/2020 FINDINGS: Single AP view with template ball was obtained. There are severe degenerative changes of both hips, more marked on the left with complete loss of the cartilaginous joint space and marked subchondral sc lerosis and cyst formation of the acetabulum and femoral head and some flattening of the femoral head s bilaterally. IMPRESSION: RADIATION DOSE DELIVERED: Total DLP
== END 2022-02-02 08:53 | disposition home or self-care (01) ==
LOC: DIORS 08:52
PROVIDERS: PCP Family Medicine; Referring Provider Family Medicine; Visit Provider Physician Assistant Surgical
DX: M16.12 Unilateral primary osteoarthritis, left hip (principal); G81.91 Hemiplegia, unspecified affecting right dominant side
CPT/HCPCS: 99214; 73502

== ENCOUNTER → 2022-02-22 09:52 | Outpatient (BNVA) | payer MEDICARE, SELFPAY | PROVIDERS: PCP Family Medicine; Referring Provider Family Medicine; Visit Provider Student in an Organized Health Care Education/Training Program | DX: M75.82 Other shoulder lesions, left shoulder (principal) | CPT/HCPCS: 20610; J1040 ==

== ENCOUNTER → 2022-03-12 12:51 | Outpatient (BNVA) | payer MEDICARE, SELFPAY | PROVIDERS: PCP Family Medicine; Referring Provider Family Medicine; Visit Provider Physician Assistant | DX: Z01.818 Encounter for other preprocedural examination (principal); M16.12 Unilateral primary osteoarthritis, left hip ==

== ENCOUNTER 2022-03-19 03:10 | Outpatient (CLI) | payer MEDICARE, SELFPAY ==
[2022-03-19 10:54] LABS: HCT 44.3 % (36.0-46.0); HGB 14.1 g/dL (11.2-15.7); MCH 30.9 pg (27.0-33.0); MCHC 31.8 % (32.0-36.0); MCV 97 fL (80-95); MPV 11.4 fL (8.0-11.0); Platelet Count 169 10^3/uL (130-400); RBC 4.57 10^6/uL (3.93-5.22); RDW 12.5 % (11.7-14.6); WBC 5.49 10^3/uL (4.4-10.8)
[2022-03-19 11:28] LABS: Anion Gap 7.2 mmol/L (3-11); BUN 24 mg/dL (7-18); CO2 30.8 mmol/L (21.0-32.0); CREATININE 0.7 mg/dL (0.55-1.02); Calcium 9.1 mg/dL (8.5-10.1); Chloride 106 mmol/L (98-107); Estimated GFR 92.41 (mL/min/1.73m2); Glucose 78 mg/dL (74-106); Potassium 3.2 mmol/L (3.5-5.1); Sodium 144 mmol/L (136-145)
== END 2022-03-19 03:11 | disposition home or self-care (01) ==
LOC: LBO 03:10
PROVIDERS: PCP Family Medicine; Visit Provider Student in an Organized Health Care Education/Training Program
DX: M25.552 Pain in left hip (principal); M16.12 Unilateral primary osteoarthritis, left hip; Z01.812 Encounter for preprocedural laboratory examination; Z01.818 Encounter for other preprocedural examination
CPT/HCPCS: 36415; 80048; 85027

== ENCOUNTER 2022-03-20 07:42 | Observation (INO) | payer MEDICARE, SELFPAY ==
[2022-03-20] VITALS (17 sets, daily range): BP systolic 90–129; BP diastolic 44–108; PULSE 58–105; RESP 9–25; TEMP 35.4–36.9; O2SAT 92–100; BMI 28.9
--- NOTE | 2022-03-20 07:46 | DSE_ITS ---
Date of service: 03/21/22 Time of Service: 11:37 DS: Diagnosis Discharge Diagnosis (1) Primary osteoarthritis of left hip: Status: Chronic Discharge Plan Disposition Patient Disposition: HOME W/HOME HEALTH SERVICE Condition: Good Discharge Details Reason For Visit: Left hip DJD Admit Date/Time: 03/20/22 06:45 Admit Provider: Avelino Tello Attending Provider: Avelino Tello Primary Care Provider: Stephy Coronado Hospital Course Hospital Course: Patient was admitted to the medical/surgical floor following the procedure. The surgery was tolerated well without any notable medical, surgical, or anesthetic complications. Mobilization began postoperatively. She was voiding spontaneously. Vitals were stable. Physical therapy worked with the patient and was cleared for discharge home. No acute medical issues. Pain was controlled on oral regimen. Home Meds and New Rx's Prescriptions: New aspirin 81 mg tablet,delayed release (DR/EC) 81 mg PO BID 30 Days Qty: 60 0RF celecoxib [Celebrex] 200 mg capsule 200 mg PO BID Qty: 30 0RF docusate sodium [Colace] 100 mg capsule 100 mg PO BID Qty: 30 0RF pantoprazole 40 mg tablet,delayed release (DR/EC) 40 mg PO DAILY 30 Days Qty: 30 0RF dexamethasone 4 mg tablet 4 mg PO DAILY Qty: 2 0RF Rx Instructions: Take one tablet once daily for two days Continued atorvastatin 40 mg tablet 40 mg PO DAILY cimetidine 200 mg tablet 200 mg PO DAILY PRN escitalopram oxalate 5 mg tablet 5 mg PO DAILY fluticasone propionate [Allergy Relief (fluticasone)] 50 mcg/actuation spray,suspension 2 spray intranasal BID PRN Rx Instructions: administer into each nostril Discontinued acetaminophen 325 mg capsule 325 mg PO ONCE PRN ibuprofen 200 mg tablet 200 mg PO Q6H PRN acetaminophen 500 mg Tablet 500 mg PO Q6H PRN Discharge Instructions Additional Instructions: Total Hip Discharge Instructions Activity: You have no restrictions on movement or positioning, but do not try to force what you do. You will find some stiffness and weakness with hip flexion (lifting your knee). Do not try to strengthen this too early, continue to practice walking and stairs and this will come. - You will have home health physical therapy utnil you are ready for discharge back to outpatient PT. - You should wear the DARWIN hose on both legs for 2 weeks. Dressing: Keep the surgical dressing in place for at least one week. After the first week it may be removed and replace with light gauze and tape or nothing. It may get wet after 3 days but avoid soaking the dressing. If it gets wet, just lightly pat dry. It is important to always keep some gauze between skin folds, especially when you are sitting. Spend some time with the wound exposed when you are lying flat as the incision does wrinkle onto itself. Medications: - You should take an anti-inflammatory Celebrex as your primary pain control medications. If the Celebrex is too expensive or not covered, please call the office for another alternative (Advil/Ibuprofen or Naproxen/Aleve). - You have been prescribed a stronger pain medication Oxycodone for breakthrough pain, take as needed as prescribed. - You have also been prescribed a stomach acid reduction agent Pantoprozole to help reduce stomach acid and reflux. - You have also been prescribed Decadron to help with post-operative nausea and pain. You will only take one day of this (tomorrow), your first day was given here in the hospital. - You will be taking Aspirin 81mg twice a day for DVT prevention unless instructed otherwise. - If you have constipation you should take Colace (which has been prescribed) or Miralax (which is available [id number]-arw-oorokln). It takes most people 3-4 days to have a bowel movement. Follow-up: 2 weeks If you have any acute concerns or questions, please do not hesitate to contact the office at [phone]. You may contact Dr. Tello with any questions after hours through the hospital at [phone] or on his cell phone at [phone]. ------ - 1. Encounter Date and Reason I certify that Bonny Jurado was seen by Avelino Tello MD on 03/21/22 and that I had a [id number] encounter with this patient that meets the physician face to face encounter requirements. 2. Clinical Findings Supporting Skilled Need and Homebound Status I certify that home health services are medically necessary, include either intermittent fpc and/or physical/speech therapy, and that this patient is homebound in that absences from the home require considerable and taxing effort and are infrequent or of short duration, or are attributable to the need to receive medical care. [X] (a) Attached documentation from encounter provides clinical findings supporting skilled need and homebound status (including what assistance patient requires to leave the home). The encounter with the patient was in whole, or in part, for the following medical condition, which is the primary reason for home health care: Left hip DJD [facility]: Physical Therapy: Bonny will benefit from home health therapy to assist with return to normal mobility and function. She is s/p left anterior NINI in the setting of right sided hemiparesis. Please assist with strengthening and coordination for transfers and mobility. No positioning restrictions. Speech Therapy: Homebound: Bonny is unable to leave her home unassisted due to weakness and chronic hemiparesis. 3. Certification and Authentication I certify that I composed the above information based on my clinical judgement relating to this patient's medical condition and, if applicable, clinical findings communicated to me by the NPP or inpatient physician who performed the Home Health Referral. All further orders will be obtained through Dr. Tello Referrals: Avelino Tello MD [ [facility] STAFF PHYSICIAN] - Activity:: Activity as Tolerated Equipment/Supplies:: No Equipment Needed Diet:: As Tolerated Discharge Orders Discharge Orders: Discharge Order (Routine); Ordered 03/21/22 Ordered By: Avelino Tello DS: Summary Time Spent with Patient providing and/or coordinating discharge services: Less than 30 minutes Status at Discharge Functional status at discharge: uses cane/walker Overall status at discharge: patient is progressing back to baseline Mental Status: mental status grossly normal Speech and Movement: speech and movement normal Mood: congruent mood Affect: normal affect Exam Psych Mental Status: mental status grossly normal Speech and Movement: speech and movement normal Mood: congruent mood Affect: normal affect DS: Data Vitals/I&O Vitals and I&O: Intake & Output 03/19/22 03/19/22 03/20/22 11:59 23:59 11:59 Weight 172 lb 0.004 oz Data Completed and Pending Labs on day of discharge: Labs from last 24 hours 03/20/22 08:45 COVID-19 Source Pending SARS-CoV-2 (PCR) Pending [facility] All Active Problems Tendonitis of left rotator cuff (Chronic) Injection: ~2014, 09/25/2018; 06/26/18; 05/16/2020, 08/29/2020, 04/04/2021, 07/13/2021; 11/14/21; 02/22/22 Primary osteoarthritis of right hip (Chronic) Multiple injections including April 2018. Primary osteoarthritis of left hip (Chronic) s/p Anterior L NINI (03/20/22) Multiple injections including April 2018. Left lateral epicondylitis (Acute) Left hand paresthesia (Acute) Cubital tunnel syndrome on left (Acute) Menopause (Acute) Hyperlipidemia (Acute) PTSD (post-traumatic stress disorder) (Acute) Recurrent UTI (urinary tract infection) (Acute) Depression (Chronic) Trochanteric bursitis (Acute) Piriformis syndrome of left side (Acute) Incomplete rotator cuff tear or rupture of left shoulder, not specified as traumatic (Acute) DVT (deep venous thrombosis) (Chronic) When she was in rehab following stroke Hemiparesis (Acute) CVA (cerebral vascular accident) (Chronic 2016) Bleeding disorder (Acute) Degenerative joint disease of both hips (Acute) FH: total abdominal hysterectomy and bilateral salpingo-oophorectomy (Acute) History of PID (Acute) Medical History History of stroke 2016-R hemiparesis Sensorineural hearing loss (SNHL) of both ears Surgical History H/O: hysterectomy Total abdominal hysterectomy with a bilateral salpingo-oophorectomy History of ankle surgery Left History of appendectomy History of cataract surgery Bilateral History of fusion of cervical spine C3-C7 [place] teeth extracted Family History Father Diabetes Mother Hypertension Dementia Social History Smoking/Tobacco Use Status: Former Tobacco Use Quit Date: 06/03/14 Smoking risk assessment performed?: Yes Alcohol Intake: current Alcohol Intake frequency: a few times a week Alcohol type: wine Drug use: Occasionally Substance use type: marijuana Housing: house Number of Children: 1 Current gender identity: female What is your relationship status?: Panel score (0-1 are the most socially isolated patients): 0 Seatbelt use: always Do you feel safe at home: Yes Do you feel safe in your relationship?: Yes
[2022-03-20 08:48] LABS: Source Nasal/Nares
--- NOTE | 2022-03-20 09:07 | W.ANESPRE ---
General Info Date of Service Date Performed: 03/20/22 Height: 5 ft 6 in Weight: 81.4 kg Body Mass Index (BMI): 28.9 Surgical Procedure: Operation Date: 03/20/22 11:20 Proposed Procedure Side Surgeon p Hip Total Hip Anterior Left Avelino Tello MD Meds Allergies and Home Medications Allergies Allergy/AdvReac Type Severity Reaction Status Date / Time acetaminophen Allergy Intermediate Verified 03/19/22 12:51 lidocaine Allergy Intermediate Verified 03/19/22 12:51 ketorolac [From Toradol] Allergy Verified 03/19/22 12:51 mushroom Allergy Verified 03/19/22 12:51 Home Medication Medication Instructions Recorded atorvastatin 40 mg tablet 40 mg PO DAILY 09/24/18 ibuprofen 200 mg tablet 200 mg PO Q6H PRN 06/26/19 cimetidine 200 mg tablet 200 mg PO DAILY PRN 01/23/21 escitalopram oxalate 5 mg tablet 5 mg PO DAILY 01/23/21 acetaminophen 325 mg capsule 325 mg PO ONCE PRN 02/14/22 fluticasone propionate 50 2 spray intranasal BID PRN 03/12/22 mcg/actuation nasal spray,suspension (Allergy Relief (fluticasone)) acetaminophen 500 mg tablet 500 mg PO Q6H PRN 03/20/22 Current Visit Medications: Current Medications Generic Name Dose Route Start Last Admin Trade Name Freq PRN Reason Stop Dose Admin Acetaminophen 1,000 mg 03/20/22 09:04 Acetaminophen 500 Mg Tab PO 03/20/22 09:05 PREOP ONE Aspirin 81 mg 03/20/22 08:30 Aspirin E.C. 81 Mg Tabec PO BID [facility] Celecoxib 400 mg 03/20/22 06:00 Celecoxib 200 Mg Cap PO 03/20/22 18:00 PREOP LORI Celecoxib 200 mg 03/20/22 08:30 Celecoxib 200 Mg Cap PO BID LORI Dexamethasone 4 mg 03/20/22 08:30 Dexamethasone 4 Mg Tab PO 03/21/22 08:31 DAILY LORI Docusate Sodium 100 mg 03/20/22 07:42 Docusate Sodium 100 Mg Cap PO BID PRN PRN Constipation Hydromorphone HCl 0.5 mg 03/20/22 07:42 Hydromorphone 2 Mg/Ml Syr IVP Q2H PRN PRN Tranexamic Acid 1,000 mg/ 60 mls @ 360 mls/hr 03/20/22 06:00 Sodium Chloride IV 03/20/22 16:00 PREOP LORI Ringer's Solution 1,000 mls @ 80 mls/hr 03/20/22 06:00 IV 04/18/22 23:59 INFUSION LORI Cefazolin Sodium/Dextrose 2 gm in 50 mls @ 100 mls/hr 03/20/22 06:00 Ancef Duplex IVPB 03/20/22 16:00 PREOP LORI Cefazolin Sodium/Dextrose 1 gm in 50 mls @ 100 mls/hr 03/20/22 08:00 Ancef Duplex IVPB 03/21/22 00:29 Q8H LORI IV Miscellaneous Supplies 1 each 03/20/22 06:00 Iv Access IV 04/18/22 23:59 DIRECTED LORI Pantoprazole Sodium 40 mg 03/21/22 07:30 Pantoprazole 40 Mg Tabcr PO DAILY@0730 LORI Polyethylene Glycol 17 gm 03/20/22 07:42 Polyethylene Glycol 3350 17 Gm Packet PO BID PRN PRN Constipation Sodium Chloride 0 ml 03/20/22 06:00 Normal Saline Flush 10 Ml Syr IV 04/18/22 23:59 PRN PRN Sodium Chloride 0 ml 03/20/22 06:00 Normal Saline 10 Ml Vial IJ 04/18/22 23:59 DIRECTED PRN Sterile Water 0 ml 03/20/22 06:00 Water,Injection,Sterile 10 Ml Vial IJ 04/18/22 23:59 DIRECTED PRN PFSH Active Problems Active Problems: Problem Status Onset Code Tendonitis of left rotator cuff M75.82 Primary osteoarthritis of right hip M16.11 Primary osteoarthritis of left hip M16.12 Left lateral epicondylitis M77.12 Left hand paresthesia R20.2 Cubital tunnel syndrome on left G56.22 Menopause Z78.0 Hyperlipidemia E78.5 PTSD (post-traumatic stress disorder) F43.10 Recurrent UTI (urinary tract infection) N39.0 Depression F32.9 Trochanteric bursitis M70.60 Piriformis syndrome of left side G57.02 Incomplete rotator cuff tear or rupture of left shoulder, not specified as traumatic M75.112 DVT (deep venous thrombosis) I82.409 Hemiparesis G81.90 CVA (cerebral vascular accident) 2016 I63.9 Bleeding disorder D69.9 Degenerative joint disease of both hips M16.0 FH: total abdominal hysterectomy and bilateral salpingo-oophorectomy Z84.2 History of PID Z87.42 Medical History Medical History History of stroke 2016-R hemiparesis Sensorineural hearing loss (SNHL) of both ears Surgical History Surgical History H/O: hysterectomy Total abdominal hysterectomy with a bilateral salpingo-oophorectomy History of ankle surgery Left History of appendectomy History of cataract surgery Bilateral History of fusion of cervical spine C3-C7 [place] teeth extracted Tobacco Smoking/Tobacco Use Status: Former Tobacco Use Alcohol Alcohol Intake: current Alcohol intake frequency: a few times a week Alcohol type: wine Substance Use Substance use: Occasionally Substance use type: marijuana Vital Signs and Lab Results Vital Signs Most Recent Vital Signs in EMR: Most Recent Vital Signs Temp Pulse Resp BP Pulse Ox 36.3 C L 59 L 16 129/108 H 99 03/20/22 08:25 03/20/22 08:25 03/20/22 08:25 03/20/22 08:25 03/20/22 08:25 Lab Results Blood Type / Crossmatch: No Data to Display Complete Blood Count: White Blood Count 5.49 10^3/uL (4.4-10.8) 03/19/22 10:43 Red Blood Count 4.57 10^6/uL (3.93-5.22) 03/19/22 10:43 Hemoglobin 14.1 g/dL (11.2-15.7) 03/19/22 10:43 Hematocrit 44.3 % (36.0-46.0) 03/19/22 10:43 Platelet Count 169 10^3/uL (130-400) 03/19/22 10:43 Complete Metabolic Panel: Sodium 144 mmol/L (136-145) 03/19/22 10:43 Potassium 3.2 mmol/L (3.5-5.1) L 03/19/22 10:43 Chloride 106 mmol/L (98-107) 03/19/22 10:43 Carbon Dioxide 30.8 mmol/L (21.0-32.0) 03/19/22 10:43 BUN 24 mg/dL (7-18) H 03/19/22 10:43 Creatinine 0.7 mg/dL (0.55-1.02) 03/19/22 10:43 Est GFR (CKD-EPI 2020) 92.41 (mL/min/1.73m2) 03/19/22 10:43 Calcium 9.1 mg/dL (8.5-10.1) 03/19/22 10:43 Glucose 78 mg/dL (74-106) 03/19/22 10:43 Liver Function Panel: No Data to Display Coagulation Panel: No Data to Display Cardiac Panel: No Data to Display Arterial Blood Gas: No Data to Display Venous Blood Gas: No Data to Display Pancreas Panel: No Data to Display Thyroid Panel: No Data to Display Infectious Disease: Coronavirus (COVID-19)(PCR) Pending 03/20/22 08:30 Coronavirus 2019 Source Nasal/Nares 03/20/22 08:30 Blood Cultures: No Data to Display Toxicology Panel: No Data to Display Anesthesia Assessment and Plan Anesthesia History Personal History: Delayed Emergence Family History: No Family History of Anesthesia Complications Exercise Tolerance Exercise Tolerance: Metabolic Equivalents<4 (Right hemiparesis) Pertinent Negatives Pertinent Negatives: No Major Cardiovascular Symptoms or Complaints, No Major Pulmonary Symptoms or Complaints and No History of CVA/TIA Cardiac & Pulmonary Exam Cardiac Exam: Normal S1/S2 Heart Sounds Pulmonary Exam: Clear Bilateral Breath Sounds Implantable Cardiac Device Does patient have a Pacemaker or an ICD?: No Airway Exam Known Difficult Airway: No Mallampati Class: 2 Mouth Opening: Normal (> 3cm) Thyromental Distance: Greater than 3 cm Neck Range of Motion: Limited ROM (Cervical fusion) Neck Circumference: Normal Teeth Condition: Normal Dentition ASA Classification ASA Score: ASA 3 Emergency Case?: No NPO Status NPO Status: NPO Clears >2 hours, Solids >8 hours Anesthesia Plan Resuscitation Status: Full Code Anesthesia Technique: Spinal Anesthesia Airway Planned: Natural Airway Monitors Used: Standard Monitors Preoperative Comments:: Plan very careful positioning due to hemiparesis
[2022-03-20] MEDS: Lactated Ringers 1,000 ML 80 ML IV ×2 (09:17→14:00)
[2022-03-20] MEDS: Acetaminophen 500 MG TAB 1000 MG PO (09:22)
[2022-03-20] MEDS: Celecoxib 200 MG CAP 400 MG PO (09:23)
--- NOTE | 2022-03-20 09:45 | DI.RAD_ITS ---
Exam(s) XR HIP LT IN OR EXAM: XR HIP LT IN OR CLINICAL HISTORY: left total hip TECHNIQUE: 2D and realtime digital imaging was performed. CONTRAST MATERIAL: Refer to procedure report. COMPARISON: CR XR HIP LT COMPLETE AP PELVIS from 02/02/2022 FINDINGS: Fluoroscopy was provided for Dr. Tello during the performance of a placement of a left total hip arthroplasty. Please refer to the procedure report for complete details. Ka,r=1.95 mGy IMPRESSION: RADIATION DOSE DELIVERED:
[2022-03-20] MEDS: ceFAZolin 2 GM/50 ML BAG IVPB (10:44)
--- NOTE | 2022-03-20 11:57 | W.PM.OP ---
Date of service: 03/20/22 Time of Service: 11:57 Operative Note Operative Note DATE OF PROCEDURE: 03/20/22 PRE-OP DIAGNOSIS: Left Hip Osteoarthritis POST-OP DIAGNOSIS: same PROCEDURE: Left Anterior Total Hip Arthroplasty with Intraoperative Navigation SURGEON: Avelino Tello BUSINESS PROCESS REPRESENTATIVE: Nat Klein ANESTHESIA TYPE: Spinal Refer to Anesthesia Record ESTIMATED BLOOD LOSS: 200 PATHOLOGY: none sent TOURNIQUET TIME: 0 COMPLICATIONS: None Patient was transported to: PACU Patient's condition: stable Implants: 1. Depuy Harrison Acetabular Component, 54mm 2. Depuy Acetabular Liner, [id number] 3. Depuy Corail Standard Collared Femoral Stem, Size 13 4. Depuy Altrx Ceramic Femoral Head, Size 36+5mm Indications: I have seen Bonny in clinic for symptoms of hip arthritis, confirmed with radiographic findings. She has exhausted nonoperative methods and was having significant limitations in daily function and desired better function and less pain. I discussed the technical details of a hip replacement. I explained the risks of the procedure to include, but not limited to, bleeding, infection, pain, stiffness, fracture, damage to nerves and vessels, damage to muscles and tendons, loosening, instability, leg length inequality, need for repeat procedure, blood clot and cardiopulmonary demise. Despite these risks, Bonny elected to proceed. Findings: There was significant signs of arthritis throughout the hip. Procedure Description: Bonny was greeted in the preoperative holding area where the correct side was identified and marked. The consent was reviewed with the patient and signed. The history and physical was updated. All questions were answered. She was taken back to the operating room. A spinal anesthestic was then administered. The feet were wrapped with cast padding and Coban and then placed into the boot liners and then into the boots. Care was taken to protect the skin and make sure the heels were fully down and the boots were stable. The patient was then positioned onto the HANA table. Both legs were held in a neutral position. SCDs were applied. The patient was then slid down onto a peroneal post. Prophylactic antibiotics in the form of Cefazolin were administered. 1g of Tranxemic Acid was given intravenously within 30 minutes of incision. The left leg was then prepped with Chloraprep and draped in a standard fashion. A second prep with Chloraprep was performed prior to placement of a shower-curtain type drape with Iodine impregnated skin protection. A timeout to confirm correct identity, side and site, procedure, allergies, anesthesia, and medical concerns was performed. An obliquely oriented incision was made starting lateral to the ASIS and running distal over the Tensor Fascia Nubia (TFL) muscle belly toward the fibular head, approximately 10cm. The skin and soft tissue was dissected sharply, through Bari?s fascia, and to the fascia of the TFL. With the fascia and superior border of the IT band identified, the fascia was incised with a new knife just above any perforators from the IT band. The TFL muscle belly was bluntly dissected away from the fascia and moved laterally. The fat between TFL and rectus was identified to ensure the dissection was not within the TFL. Blunt dissection created space between abductors and the capsule and retractor was placed over the lateral femoral neck. The fibers of the rectus femoris tendon were identified and these were freed from the anterior capsule. A second cobra retractor was placed around the medial femoral neck. The TFL was further retracted laterally to show the deep fascia. Careful dissection through this layer identified three main crossing vessels of the lateral femoral circumflex. These were cauterized in multiple locations and then cut without any noticeable bleeding. The TFL was further released bluntly from the deep fascia to expose anterior hip capsule and fat The Saulo orthopaedic retractor was then placed beneath the TFL and against sartorius and medial soft tissues to protect and retract the soft tissues. A T-capsulotomy was then performed starting at the superior lateral acetabulum and moving distally to the intertrochanteric ridge. These capsular flaps were tagged with a No. 1 Ethibond and elevated from within. The capsular flaps were released to the shoulder of the lateral neck and to the lesser trochanter to give excellent visualization of the proximal femur. A neck osteotomy was performed using an oscillating saw based on preoperative templates. This cut started in the shoulder and of the lateral neck and exited medially. The saw was at all times directed medially to avoid injury to the greater trochanter. Gross traction was applied to the leg and the osteotomy opened. The femoral head was removed with a corkscrew, making sure to protect the TFL on its exit. Traction was released after head removal. This was measured on the back table to determine the starting reamer size. Portions of the rectus obscuring visualization were minimally elevated off the superior acetabulum. An anterior retractor was placed over the anterior wall between capsule and labrum and attached to the Gripper retraction system. The femur was rotated to 90 degrees and medial capsule was fully released until the lesser trochanter was palpable and visible; the femur was returned to 30 degrees. A posterior retractor was placed similarly between capsule and labrum. This provided excellent visualization. The contents of the cotyloid fossa were removed with electrocautery and the labrum was removed with a knife. There was a notable floor osteophyte. There was significant chondromalacia of the superior acetabulum. Acetabular reaming began with a 48mm reamer. This first reaming was directed anterior to posterior and medial to get down to the true floor. This was inspected and reamed until the true floor was reached. The anterior retractor was then released and entry and exit was provided by traction on the capsular flaps. I then reamed sequentially up to a 54mm reamer where good fit was obtained. The larger reamers were oriented based on anatomical reference of the anterior and lateral christianson to ensure proper abduction and anteversion. Positioning and size was confirmed with the fluoroscopy. A 54mm Depuy Harrison acetabular component was selected. The acetabulum was reamed around the periphery with the selected acetabular size to prevent a rim fit. The deep tissues were irrigated. The acetabular component was then impacted in a position of about 40-45 degrees of abduction and 15-20 degrees of anteversion, using the patient?s anatomy as the ultimate landmark. Fluoroscopy was used to confirm this. There was excellent hoop cutter of the acetabular component and the inserting handle was removed. The acetabular liner, Depuy [id number] polyethylene liner, was inserted and lined up with the tines of the acetabular component. There was no soft tissue interposition. The liner was then impacted into position and confirmed to be well-seated. A portion of the ronak-articular cocktail was then injected around the acetabulum into the capsule and periosteum. This cocktail consisted of 123mg of Ropivacaine, 0.25mg of Epinephrine, 0.04mg of Clonidine, and 15mg of Ketorolac, diluted to 50cc. The leg was rotated to 120 degrees. Any remaining medial capsule was released until the lesser trochanter was easily palpable. A retractor was placed medially. The lateral capsule was further released into the shoulder to allow access to the greater trochanter. A Liz retractor was placed over the greater trochanter which allowed the trochanter to flip in front of the capsule for excellent exposure. The leg was brought down into maximal extension and 20 degrees of adduction while ensuring there was no impingement on the acetabulum. Any remnant capsule within the trochanter was released. Piriformis and obturator externis were identified and protected. There was excellent access to the proximal femur. The lateral neck remnant was removed with a rongeur. A blunt canal probe was used to identify the canal and trajectory for later broaching. A box osteotome initiated the broach course. A small curved rasp and a curved curette were used to work laterally. Broaching then began with a size 8 Corail broach. This was inserted manually around the trochanter and into the canal before mallet blows. The broach was seated to a few millimeters below the cut level based on the neck cut and the preoperative template. Sequential broaching was continued with the [employer] pneumatic broaching device until a tight fit was obtained with good rotational control of the femur. A trial standard neck was inserted along with a +5 trial head. The leg was brought out of extension and adduction and then reduced with traction and internal rotation. The leg was stable anteriorly in a position of 30 degrees of extension and 90 degrees of external rotation. Fluoroscopy was used to ensure there was no fracture and the stem was seated well. Leg lengths were checked with an AP pelvis and pelvic reference points. OutTrippin navigation system was used to confirm appropriate positioning and leg length and offset. Once content with the desired offset and leg lengths, the leg was brought back into extension, external rotation and adduction. The periosteum and surrounding tissue was injected with remaining portion of the ronak-articular cocktail. The proximal femur was irrigated as well as the deep tissues. The Depuy Corail standard collared stem, size 13, was then manually inserted into the proximal femur making sure to control rotation. It was then malleted into position with light blows, giving breaks to allow bone expansion and decrease risk of fracture. The selected Depuy Altrx Ceramic Head, size 36+5mm, was then placed onto the clean and dry trunnion and secured with impaction onto the tapered fit. The leg was brought back out of extension and adduction and reduced with traction and internal rotation. Stability was confirmed with no shuck at 90 degrees of external rotation and 30 degrees of extension. No impingement through range of motion arc. Final x-ray images were obtained with fluoroscopy to confirm adequate positioning and no intraoperative fracture. The deep tissues were thoroughly irrigated with Surgiphor, betadine solution. This was allowed to sit in the wound for 3 minutes before being thoroughly irrigated out with normal saline. The capsule was then reapproximated with the previously placed Ethibond sutures. The TFL fascia was finally closed with a No. 2 Stratafix, barbed suture. Deep tissues were then reapproximated with 0 Vicryl and a running 2-0 Vicryl. The skin was closed with a running 4-0 Monocryl in a subcuticular fashion. This was reinforced with skin glue. A Mepilex silver dressing was applied. At the end of the case, all counts were correct. Bonny was transferred to the hospital bed without difficulty and suffering no apparent complication. Bonny has a good prognosis. Physical therapy will start today and without restrictions, weight-bearing as tolerated. Aspirin 81mg BID will be used for DVT prophylaxis.
[2022-03-20 12:05] LABS: COVID-19 PCR Negative (Negative)
[2022-03-20] MEDS: fentaNYL 100 MCG/2 ML VIAL IVP (12:47)
--- NOTE | 2022-03-20 12:56 | W.ANESPOSTOP ---
Postoperative Evaluation Date, Time and Location Date Performed: 03/20/22 Time Performed: 12:51 Patient Location: PACU Vital Signs Most Recent Imported Vital Signs: Most Recent Vital Signs Temp Pulse Resp BP Pulse Ox 36.1 C L 72 25 H 129/70 98 03/20/22 12:45 03/20/22 12:45 03/20/22 12:45 03/20/22 12:45 03/20/22 12:45 Pain Score Most Recent Pain Score: Most Recent Pain Score Pain Level 5 03/20/22 12:45 Assessment Mental Status: Awake (Alert & Oriented to Patient Baseline) Airway and Respiratory Function: Patent airway with normal (patient baseline) respiratory exam Cardiovascular Function: Hemodynamically Stable Hydration Status: Adequately Hydrated Nausea & Vomiting: No Nausea or Vomiting Pain: Pain is tolerable per patient Peripheral Nerve Block: Patient did not receive a nerve block
[2022-03-20] MEDS: Acetaminophen 500 MG TAB PO (14:05)
[2022-03-20] MEDS: oxyCODONE 5 MG TAB PO (14:32)
--- NOTE | 2022-03-20 14:39 | PT.INIE ---
Date of service: 03/20/22 Time of Service: 14:39 PT Notes Visit Reasons: Left hip DJD Physical Therapy Inpatient Initial Evaluation Date: 03/20/2022 Referring Doctor: LYUBOV Redding PT Orders: PT CONSULT: S/P Ortho surgery Precautions: Fall. Standard. WBAT on L LE with AD. Patient Profile/Admitting Diagnosis: Bonny is a 72-year-old female with past medical history significant for right sided hemiplegia from CVA 6 years ago with diagnoses of degenerative joint disease of the left hip and is status post left anterior total hip arthroplasty on postoperative day 0. Patient had been receiving OP PT and OT services for stroke rehabilitation at the OP clinic since 2019 with good response. PMHX: Medical History?(Updated 03/12/22 @ 13:08 by Nat Klein) History of stroke Sensorineural hearing loss (SNHL) of both ears Surgical History?(Updated 03/12/22 @ 13:08 by Nat Klein) H/O: hysterectomy Total abdominal hysterectomy with a bilateral salpingo-oophorectomyHistory of ankle surgery Left History of appendectomy History of cataract surgery Bilateral History of fusion of cervical spine C3-C7 [place] teeth extracted Social History/Home Situation: Lives with son in a private home with a ramp from the garage to the inside of the house. Son provides transportation for all medical appointments. Son helps with transfers and takes care of meals. He provides set up assist for patient for bathing and dressing. She has been doing stand step transfers using her hemiwalker on the L side since the pain level in her L hip got worse back in December. Equipment Owned/DME: wheelchair, transport wheelchair, hemiwalker, shower chair Subjective: Bonny states that her L hip started bothering her even before she had the stroke back in 2015. The pain got gradually worse when she had the CVA. Patient verbalizes that her son has looked stressed from the caregiving she has been providing for her that both him and her will appreciate PT/OT services for the first two weeks after discharge from hospital before she comes back to see primary PT Joy at the outpatient clinic. Objective: General Observation: Supine in bed. Mepilex Ag over surgical incision. TEDS to B legs. IV access in L UE. Mental Status: Alert and oriented as to person, place, time, and purpose. Able to pay attention, focus, and respond appropriately. Pain: 4-5/10 in the L hip Vital Signs: WNL as closely monitored by nursing staff ROM: Right Upper Extremity: Shoulder Flexion lacks the last 50% of AROM. Shoulder abduction lacks the last 50% of AROM. Elbow flexion WFL. Wrist flexion WFL. Functional opening and closing of hand limited. Grasp weak and non-functional. Left Upper Extremity: Shoulder Flexion WFL. Shoulder abduction WFL. Elbow flexion WFL. Wrist flexion WFL. Functional opening and closing of hand WFL. Right Lower Extremity: Hip flexion lacks the last 25% of AROM. Hip abduction WFL. Knee flexion WFL. Ankle dorsiflexion none. Ankle plantarflexion 10 degrees. Left Lower Extremity: Hip flexion WFL. Hip abduction WFL. Knee flexion WFL. Ankle dorsiflexion WFL. Ankle plantarflexion WFL. Strength: Right Upper Extremity: Shoulder flexors 3-/5. Shoulder abductors 3-/5. Elbow flexors 4-/5. Elbow extensors 4-/5. Salt Refiner weak and non-functional. Left Upper Extremity: Shoulder flexors 4/5. Shoulder abductors 4/5. Elbow flexors 4/5. Elbow extensors 4/5. Salt Refiner strong. Right Lower Extremity: Hip flexors 3-/5. Hip abductors 3-/5. Knee flexors 3+/5. Knee extensors 3+/5. Ankle dorsiflexors 2-/5. Ankle plantarflexors 3-/5. Left Lower Extremity: Hip flexors 4/5. Hip abductors 4/5. Knee flexors 4/5. Knee extensors 4/5. Ankle dorsiflexors 4/5. Ankle plantarflexors 4/5. Bed Mobility/Transfers: Supine to sit moderate assist Sit to stand moderate assist Stand to sit moderate assist Bed to bedside commode moderate assist using stand pivot transfer with hemiwalker on L Bedside commode to bed moderate assist using stand pivot transfer with hemiwalker on L Bedside commode to reclining chair moderate assist moderate assist using stand pivot transfer with hemiwalker on L Gait: Unable at this time, unable to shift weight onto L to advance R LE. Being unable to use hemiwalker on R due to weak grasp from previous stroke and with pre-existing R hemiaresis, the L LE is placed at a mechanical disadvantage. Will attempt at trailling hemiwalker placement modifications tomorrow to allow for safer weight shifting that will facilitate limb advancement. Balance: Static Sitting: Good Dynamic Sitting: Fair Static Standing: Poor Dynamic Standing: Poor Special Tests: Mobility Limitations Standardized Measure [facility] AM-PAC 6 clicks Basic Mobility Inpatient Short Form: Raw Score: 12 CMS Score: 69% deficit Informed Consent/Education: Patient was instructed in purpose of PT consult and plan of care. Agreeable to proceed with established PT POC to achieve personal goals. Assessment: Previously hemiparetic on the R UE/LE with NINI done on the L. Needs more training with limb advancement for safe gait performance. Pain in the L hip adversely affects ability to move R LE. Unsure of how much physical help patient's son will be able to provide at home. Will require parallel bar training to ensure safe ambulation mechanics. Patient presents with clinical signs and symptoms consistent with current/admitting diagnoses that have resulted to mobility limitations, gait instability, generalized weakness, and overall ADL decline as demonstrated by the following impairment level findings: 1. Decreased strength to R UE/LE and L hip major muscle groups 2. Impaired sitting/standing balance 3. Impaired activity tolerance 4. Limitation of joint range of motion in R UE/LE from previous stroke 5. Pain in L hip 6. Impaired motor control and planning due to previous stroke Impairments are contributing to the following functional limitations: 1. Decline in bed mobility skills 2. Decline in transfer skills 3. Difficulty with ambulation without assistive device and physical assistance 4. Increased completion time for mobility ADL performance 5. Increased risk for falls 6. Difficulty with managing steps alone safely Patient is assessed as a 98008 high complexity based on the following: History: 72-year-old female with past medical history as indicated above Examination: Demonstrable impairment in strength, balance, and mobility level with underlying impairments and functional limitations as exhibited above as well as deficit score of 69% utilizing the [facility] Mobility Inpatient Short Form Presentation: Evolving Decision Makin high complexity Goals: Goals X1 week 1. Supine-Sit stand by assist 2. Sit-Supine stand by assist 3. Sit-Stand contact guard assist 4. Stand-Sit contact guard assist with hemiwalker 5. Bed-Chair contact guard assist with hemiwalker 6. Chair-Bed contact guard assist with hemiwalker 7. Minimal assist with gait on level surface with use of hemiwalker for at least 15 feet without report of pain nor dyspnea 8. Fair static and dynamic standing balance/tolerance Plan of Care/Treatment Plan: 1-2x/day, 7 days/week x 1 week. Plan of care has been reviewed with the [employer] providing the service under Physical Therapy direction. Initiate Physical Therapy intervention for pain management as needed, strengthening, bed mobility, transfers, gait, balance training, and use of assistive device. DISCHARGE RECOMMENDATIONS: [] Home with no services [] [] Home with services [specify] [] Home with outpatient PT [] [] SNF for continued rehabilitation [] [] [employer] [facility] [] [] SNF versus LTC based on ability to participate and progress [] [X] SNF vs HHPT/OT based on ability to progress towards above goals and on amount of available assistance from son/caregivers TREATMENT CODE/TIME: 88202 x 20 minutes, 23195 x 13 minutes beginning at 14:39 PM. Thank you for the opportunity to participate in the care of this patient. Kristine Gamino PT, DPT, CLT [facility] [place], [place]
[2022-03-20] MEDS: Celecoxib 200 MG CAP PO (23:07)
[2022-03-20] MEDS: Aspirin E.C. 81 MG TABEC PO (23:08)
[2022-03-20] MEDS: Normal Saline Flush 10 ML SYR IV (23:08)
[2022-03-20] MEDS: ceFAZolin 1 GM/50 ML BAG IVPB (23:09)
[2022-03-21] MEDS: Lactated Ringers 1,000 ML 80 ML IV (02:28)
[2022-03-21 03:21] VITALS: BP 106/60; PULSE 71; RESP 16; TEMP 36.5; O2SAT 95
[2022-03-21] MEDS: oxyCODONE 5 MG TAB PO ×2 (03:31→11:26)
[2022-03-21] MEDS: ceFAZolin 1 GM/50 ML BAG IVPB ×2 (03:31→11:26)
[2022-03-21 07:36] VITALS: BP 96/58; PULSE 58; RESP 16; TEMP 36.9; O2SAT 97
[2022-03-21] MEDS: Escitalopram 10 MG TAB 5 MG PO (07:49)
[2022-03-21] MEDS: Aspirin E.C. 81 MG TABEC PO (07:49)
[2022-03-21] MEDS: Atorvastatin 40 MG TAB PO (07:50)
[2022-03-21] MEDS: Acetaminophen 500 MG TAB PO (07:50)
[2022-03-21] MEDS: Celecoxib 200 MG CAP PO (07:50)
[2022-03-21] MEDS: Pantoprazole 40 MG TABCR PO (07:50)
[2022-03-21] MEDS: Dexamethasone 4 MG TAB PO (07:50)
--- NOTE | 2022-03-21 08:40 | INITIAL_ITS ---
- If Service Date Differs Date of service: 03/21/22 Time of Service: 08:40 Care Management Initial Assess REASON FOR HOSPITALIZATION:: Left Hip Osteoarthritis PAST MEDICAL HISTORY/PAST SURGICAL HISTORY:: All Active Problems (Updated 03/19/22 @ 12:46 by Madi Lafleur). Tendonitis of left rotator cuff (Chronic). Injection: ~2014, 09/25/2018; 06/26/18; 05/16/2020, 08/29/2020, 04/04/2021, 07/13/2021; 11/14/21; 02/22/22. Primary osteoarthritis of right hip (Chronic). Multiple injections including April 2018. Primary osteoarthritis of left hip (Chronic). Multiple injections including April 2018. Left lateral epicondylitis (Acute). Left hand paresthesia (Acute). Cubital tunnel syndrome on left (Acute). Menopause (Acute). Hyperlipidemia (Acute). PTSD (post- traumatic stress disorder) (Acute). Recurrent UTI (urinary tract infection) (Acute). Depression (Chronic). Trochanteric bursitis (Acute). Piriformis syndrome of left side (Acute). Incomplete rotator cuff tear or rupture of left shoulder, not specified as traumatic (Acute). DVT (deep venous thrombosis) (Chronic). When she was in rehab following stroke. Hemiparesis (Acute). CVA (cerebral vascular accident) (Chronic 2016). Bleeding disorder (Acute). Degenerative joint disease of both hips (Acute). FH: total abdominal hysterectomy and bilateral salpingo-oophorectomy (Acute). History of PID (Acute). Medical History (Updated 03/19/22 @ 12:46 by Madi Lafleur). History of stroke. 2016-R hemiparesis. Sensorineural hearing loss (SNHL) of both ears. Surgical History . H/O: hysterectomy. Total abdominal hysterectomy with a bilateral salpingo- oophorectomy. History of ankle surgery. Left. History of appendectomy. History of cataract surgery. Bilateral. History of fusion of cervical spine. C3-C7. [place] teeth extracted PREVIOUS FUNCTIONAL STATUS/SOCIAL/FAMILY SUPPORTS:: Bonny lives in [place] with her son Steven. She is mostly independent at baseline, although she identifies Steven as being her primary caregiver. Bonny is tearful, when she talks about Steven and all the support he provides her. Bonny had a stroke 6 years ago and since then, she can't thank Steven enough for all his support. CURRENT FUNCTIONAL STATUS:: Bonny is lying in bed, fully dressed in her street clothes and ready to go home. She is alert, oriented, pleasant and easy to engage in conversation. Bonny shared with CM about her living arrangements with her son Steven and also indicates that she feels very supportive at home. She respectfully declines a referral to [facility], at this time. ADVANCE DIRECTIVES:: On file, [facility]: Steven Jurado, Alt. Isai Jurado Has patient been provided with info about the portal/API?: Yes Did the patient sign up for the portal?: No CODE STATUS:: Full Code INSURANCE COVERAGE / FINANCIAL ISSUES:: AARP. Medicare PRIMARY CARE PHYSICIAN:: Stephy Coronado POTENTIAL DISCHARGE NEEDS:: Assessment for increased community/caregiver support, [facility] services, [facility] referral, PATIENT/FAMILY EDUCATION NEEDS:: Review discharge instructions, limitations, medications and plan to follow up with community providers. Discuss ask me three. TRANSPORTATION:: Via private vehicle with son. PLAN:: Anticipate, Bonny will discharge home with New [facility] PT/OT and increased family/caregiver support vs. SNF for STR. Transportation will be dependent on disposition.
[2022-03-21 11:06] VITALS: BP 95/58; PULSE 63; RESP 16; TEMP 36.9; O2SAT 92
[2022-03-21] MEDS: Normal Saline Flush 10 ML SYR IV (11:25)
--- NOTE | 2022-03-21 13:54 | PDOC.CMDIS ---
- If Service Date Differs Date of service: 03/21/22 Time of Service: 13:54 LACE Index Scoring Tool - Questions: Length of Stay (in days): 1 Acuity (Admit via E.D.?): No Comorbidities: Cerebrovascular Disease (HX of Stroke, 2016) E.D. Visits: 0 - Answers: Total Score: 2 Risk of Readmission: Low Risk Care Management Discharge Reason for Hospitalization: Left Hip Osteoarthritis Discharge Plan: Bonny is discharged home via private vehicle with family. Pt will follow up with her community providers and discharge plan of care as prescribed. New [facility] PT services are ordered. [facility] and patient will follow up with Dr. Tello 04/02/22, as scheduled. Patient/Family Education Needs: Review discharge instructions, limitations/restrictions, medications and plan to follow up with community providers. Discuss ask me three. Services Needed at Discharge: Home Health Care Services ([facility] PT, CM notified.)
== END 2022-03-21 13:49 | disposition home health service (06) | DRG 470 ==
LOC: PDS 12:06 → MS 14:20 → DSU 03-22 10:50 → PDS 03-22 10:50 → DSU 03-22 10:57 → MS 03-22 10:57
PROVIDERS: Admitting Provider Student in an Organized Health Care Education/Training Program; PCP Family Medicine; Visit Provider Student in an Organized Health Care Education/Training Program
PROC: 0SRB04A Replacement of Left Hip Joint with Ceramic on Polyethylene Synthetic Substitute, Uncemented, Open Approach (ICD-10-PCS; CPT 27130; principal; 2022-03-20 11:00)
DX: M16.12 Unilateral primary osteoarthritis, left hip (principal); I69.351 Hemiplegia and hemiparesis following cerebral infarction affecting right dominant side; E78.5 Hyperlipidemia, unspecified; F43.10 Post-traumatic stress disorder, unspecified; F32.A Depression, unspecified; H90.3 Sensorineural hearing loss, bilateral; F12.90 Cannabis use, unspecified, uncomplicated; Z87.891 Personal history of nicotine dependence; Z86.718 Personal history of other venous thrombosis and embolism
CPT/HCPCS: 27130; 20985; C1776; 87635; 97110; 97163; 97530; 73501; G0378; J0690; J1100; J2250; J2370; J2405; J3010; J8540

== ENCOUNTER 2022-04-02 13:20 | Outpatient (CLI) | payer MEDICARE, SELFPAY ==
--- NOTE | 2022-04-02 13:00 | DI.RAD_ITS ---
Exam(s) XR HIP LT COMPLETE AP PELVIS EXAM: XR HIP LT COMPLETE AP PELVIS INDICATION: f/u L NINI. COMPARISON: CR XR HIP LT COMPLETE AP PELVIS from 02/02/2022 XA XR HIP LT IN OR from 03/20/2022 TECHNIQUE: 2D digital imaging was performed. Two views. FINDINGS: There has been no change in the alignment of left hip prosthesis. There are no abnormal surrounding lucencies. Advanced degenerative changes of the right hip are again noted. DATA REPOSITORY: RADIATION DOSE DELIVERED:
== END 2022-04-02 13:21 | disposition home or self-care (01) ==
LOC: DIORS 13:20
PROVIDERS: PCP Family Medicine; Referring Provider Family Medicine; Visit Provider Student in an Organized Health Care Education/Training Program
DX: Z47.1 Aftercare following joint replacement surgery (principal); Z96.642 Presence of left artificial hip joint
CPT/HCPCS: 73502

== ENCOUNTER → 2022-05-29 13:52 | Outpatient (BNVA) | payer MEDICARE, SELFPAY | PROVIDERS: PCP Family Medicine; Referring Provider Family Medicine; Visit Provider Physician Assistant | DX: Z47.1 Aftercare following joint replacement surgery (principal); Z96.642 Presence of left artificial hip joint ==

== ENCOUNTER → 2022-08-01 11:14 | Outpatient (BNVA) | payer MEDICARE, SELFPAY | PROVIDERS: PCP Family Medicine; Referring Provider Family Medicine; Visit Provider Physician Assistant | DX: M75.82 Other shoulder lesions, left shoulder (principal) | CPT/HCPCS: 20610; J1040 ==

== ENCOUNTER → 2022-11-23 07:49 | Outpatient (BNVA) | payer MEDICARE, SELFPAY | PROVIDERS: PCP Family Medicine; Referring Provider Family Medicine; Visit Provider Physician Assistant | DX: M75.82 Other shoulder lesions, left shoulder (principal) | CPT/HCPCS: 20610; J1040 ==

== ENCOUNTER 2023-03-18 12:59 | Outpatient (CLI) | payer MEDICARE, SELFPAY ==
--- NOTE | 2023-03-18 10:00 | DI.RAD_ITS ---
Exam(s) XR HIP LT AP LAT ONLY EXAM: XR HIP LT AP LAT ONLY CLINICAL HISTORY: YEARLY F/U LEFT NINI. TECHNIQUE: 2D digital imaging was performed. Two images were obtained. AP and lateral views were ob tained. COMPARISON: CR XR HIP LT COMPLETE AP PELVIS from 04/02/2022 FINDINGS: BONES: There are stable post operative changes left total hip replacement present. No fracture or di slocation. JOINTS: The orthopedic hardware is in good position. No evidence of hardware loosening. SOFT TISSUE: Normal. IMPRESSION: Stable postoperative changes. DATA REPOSITORY: RADIATION DOSE DELIVERED:
== END 2023-03-18 13:00 | disposition home or self-care (01) ==
LOC: DIORS 12:59
PROVIDERS: PCP Family Medicine; Referring Provider Family Medicine; Visit Provider Student in an Organized Health Care Education/Training Program
DX: Z96.642 Presence of left artificial hip joint (principal); Z47.1 Aftercare following joint replacement surgery; M75.82 Other shoulder lesions, left shoulder
CPT/HCPCS: 20610; 73502; J1040

== ENCOUNTER → 2023-07-26 08:38 | Outpatient (BNVA) | payer MEDICARE, SELFPAY | PROVIDERS: PCP Family Medicine; Referring Provider Family Medicine | DX: M75.82 Other shoulder lesions, left shoulder (principal) | CPT/HCPCS: 20610; J1040 ==

== ENCOUNTER → 2023-12-20 08:34 | Outpatient (BNVA) | payer MEDICARE, SELFPAY | PROVIDERS: PCP Family Medicine; Referring Provider Family Medicine | DX: M75.82 Other shoulder lesions, left shoulder (principal) | CPT/HCPCS: 20610; J1010 ==

== ENCOUNTER → 2024-04-06 14:41 | Outpatient (BNVA) | payer MEDICARE, SELFPAY | PROVIDERS: PCP Family Medicine; Referring Provider Family Medicine; Visit Provider Student in an Organized Health Care Education/Training Program | DX: M75.82 Other shoulder lesions, left shoulder (principal) | CPT/HCPCS: 20610; J1010 ==

== ENCOUNTER → 2024-07-17 08:55 | Outpatient (BNVA) | payer MEDICARE, SELFPAY | PROVIDERS: PCP Family Medicine; Referring Provider Family Medicine | DX: M75.82 Other shoulder lesions, left shoulder (principal) | CPT/HCPCS: 20610; J1010 ==

== ENCOUNTER 2024-09-21 14:44 | Outpatient (REF) | payer MEDICARE, SELFPAY ==
[2024-09-21 15:03] LABS: HCT 42.8 % (36.0-46.0); MCH 31.1 pg (27.0-33.0); MCHC 32.7 % (32.0-36.0); MCV 95 fL (80-95); MPV 12.7 fL (8.0-11.0); Platelet Count 179 10^3/uL (130-400); RDW 13.1 % (11.7-14.6); RDW-SD 46.2 fL; WBC 5.54 10^3/uL (4.4-10.8)
[2024-09-21 15:33] LABS: ALT 27 U/L (14-59); AST 19 U/L (15-37); Albumin 3.7 g/dL (3.4-5.0); Alkaline Phosphatase 149 U/L (46-116); Anion Gap 7.9 mmol/L (3-11); BUN 19 mg/dL (7-18); Bilirubin, Total 0.7 mg/dL (0.2-1.0); CO2 28.1 mmol/L (21.0-32.0); CREATININE 0.8 mg/dL (0.55-1.02); Calcium 9.3 mg/dL (8.5-10.1); Calculated LDL 72 mg/dL (<100); Chloride 107 mmol/L (98-107); Cholesterol 147 mg/dL (<200); Estimated GFR 77.75 (mL/min/1.73m2); Glucose 93 mg/dL (74-106); HDL Cholesterol 54 mg/dL (>or=50); Potassium 4.1 mmol/L (3.5-5.1); Sodium 143 mmol/L (136-145); Total Protein 6.8 g/dL (6.4-8.2); Triglyceride 106 mg/dL (<150)
== END 2024-09-21 14:45 | disposition home or self-care (01) ==
LOC: NCHCN 14:44
PROVIDERS: PCP Family Medicine; Visit Provider Family Medicine
DX: I63.9 Cerebral infarction, unspecified (principal)
CPT/HCPCS: 80053; 80061; 85027

== ENCOUNTER → 2024-11-06 10:24 | Outpatient (BNVA) | payer MEDICARE, SELFPAY | PROVIDERS: PCP Family Medicine; Referring Provider Family Medicine; Visit Provider Physician Assistant | DX: M16.11 Unilateral primary osteoarthritis, right hip (principal) | CPT/HCPCS: 20611; J1010 ==

== ENCOUNTER → 2024-11-27 09:15 | Outpatient (BNVA) | payer MEDICARE, SELFPAY | PROVIDERS: PCP Family Medicine; Referring Provider Family Medicine; Visit Provider Physician Assistant | DX: M75.82 Other shoulder lesions, left shoulder (principal) | CPT/HCPCS: 20610; J1010 ==

== ENCOUNTER → 2024-12-31 13:52 | Outpatient (BNVA) | payer MEDICARE, SELFPAY | PROVIDERS: PCP Family Medicine; Referring Provider Family Medicine; Visit Provider Student in an Organized Health Care Education/Training Program | DX: M24.851 Other specific joint derangements of right hip, not elsewhere classified (principal) | CPT/HCPCS: 99213 ==

== ENCOUNTER → 2025-04-01 09:49 | Outpatient (BNVA) | payer MEDICARE, SELFPAY | PROVIDERS: PCP Family Medicine; Referring Provider Family Medicine; Visit Provider Physician Assistant | DX: M75.82 Other shoulder lesions, left shoulder (principal) | CPT/HCPCS: 20610; J1010 ==